=== PATIENT | male | born 1965 | race Two or more races ===

== ENCOUNTER 2018-01-15 14:18 | Inpatient (IN) | payer OTHER ==
[~2018-01-15] VITALS: Ht 167.6 cm; Wt 64.9 kg
[~2018-01-15 14:18] MED LIST: AGGRENOX 25 MG1 EACH ORAL; LEVETIRACETAM500 MG ORAL; OMEPRAZOLE20 M2 ORAL; PANTOPRAZOLE SO40 MG ORAL
--- NOTE | 2018-01-15 14:32 | Emergency Room Report ---
History of Present Illness General Chief Complaint: General Complaint Source: Patient Present Illness HPI Patient is a 52-year-old male brought in by EMS after increased lower extremity pain. 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 The patient states that he had been diagnosed with non-Hodgkin' s lymphoma in the past but had currently been in remission. The patient was followed by neurology for seizure disorder. He had recently been started on new medication which he states started with V but cannot recall the name. The patient denies recent taking medications currently.The patient reports taking Aggrenox previously. The patient reports having burning sensation to his chest associated with nausea and vomiting intermittently for one day. 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 Allergies: Coded Allergies: No Known Allergies (Unverified , 04/29/16) Patient History Past Surgical History: none Reviewed Nursing Documentation: PMH: Agreed; PSxH: Agreed Nursing Documentation-PMH Past Medical History: No History, Except For Hx Hypertension: Yes Hx Cancer: Yes - Hodgkin's Lymphoma Hx Gastrointestinal Problems: No Hx Cerebrovascular Accident: Yes - 6 weeks ago Hx Transient Ischemic Attacks: Yes Hx Seizures: No Hx Headaches: Yes Review of Systems All Other Systems: negative except mentioned in HPI Physical Exam Vital Signs Date Time Temp Pulse Resp B/P (MAP) Pulse Ox O2 Delivery O2 Flow Rate FiO2 01/15/18 14:19 97.8 114 18 73/49 99 97.9 Sp02 EP Interpretation: reviewed, normal General Appearance: normal inspection, well appearing, no apparent distress, alert, GCS 15 Head: atraumatic ENT: normal ENT inspection, hearing grossly normal, normal voice Neck: normal inspection, full range of motion, supple, no bony tend Respiratory: normal inspection, lungs clear, normal breath sounds, no respiratory distress, no retraction, no wheezing Cardiovascular #1: regular rate, rhythm, no edema Gastrointestinal: normal inspection, normal bowel sounds, non tender, soft, no guarding, no hernia Genitourinary: no CVA tenderness Musculoskeletal: normal inspection, back normal, normal range of motion Neurologic: normal inspection, alert, oriented x3, responsive, 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 Differential diagnosis included but was not limited to acute coronary syndrome, pulmonary embolism, pneumonia, aortic dissection, shingles, pneumothorax, aortic dissection, esophageal rupture, pericarditis. Because of complexity of patient's case laboratory testing and imaging studies were ordered.The patient was noted to be hypotensive initially with initial blood pressure in the 60s. Patient was started on IV fluids. He was noted to have some improvement in blood pressure. CTA of the chest read by radiology showed the midlung scarring versus infiltrate with questionable esophageal thickening.The patient will be admitted to Dr. Sim by for panel physician Labs Test 01/15/18 14:26 01/15/18 14:29 01/15/18 16:00 01/15/18 17:23 White Blood Count 8.8 K/UL (4.8-10.8) Red Blood Count 5.06 M/UL (4.70-6.10) Hemoglobin 15.0 G/DL (14.2-18.0) Hematocrit 45.4 % (42.0-52.0) Mean Corpuscular Volume 90 FL (80-99) Mean Corpuscular Hemoglobin 29.7 PG (27.0-31.0) Mean Corpuscular Hemoglobin Concent 33.1 G/DL (32.0-36.0) Red Cell Distribution Width 11.5 % (11.6-14.8) Platelet Count 297 K/UL (150-450) Mean Platelet Volume 6.3 FL (6.5-10.1) Neutrophils (%) (Auto) 76.3 % (45.0-75.0) Lymphocytes (%) (Auto) 13.9 % (20.0-45.0) Monocytes (%) (Auto) 6.0 % (1.0-10.0) Eosinophils (%) (Auto) 2.9 % (0.0-3.0) Basophils (%) (Auto) 1.0 % (0.0-2.0) Prothrombin Time 10.4 SEC (9.30-11.50) Prothromb Time International Ratio 1.0 (0.9-1.1) Activated Partial Thromboplast Time 25 SEC (23-33) Sodium Level 138 MMOL/L (136-145) Potassium Level 3.5 MMOL/L (3.5-5.1) Chloride Level 99 MMOL/L (98-107) Carbon Dioxide Level 24 MMOL/L (21-32) Anion Gap 15 mmol/L (5-15) Blood Urea Nitrogen 19 mg/dL (7-18) Creatinine 1.7 MG/DL (0.55-1.30) Estimat Glomerular Filtration Rate 42.5 mL/min (>60) Glucose Level 100 MG/DL (74-106) Calcium Level 10.6 MG/DL (8.5-10.1) Phosphorus Level 2.2 MG/DL (2.5-4.9) Magnesium Level 1.4 MG/DL (1.8-2.4) Total Bilirubin 0.8 MG/DL (0.2-1.0) Aspartate Amino Transf (AST/SGOT) 27 U/L (15-37) Alanine Aminotransferase (ALT/SGPT) 33 U/L (12-78) Alkaline Phosphatase 79 U/L (46-116) Total Creatine Kinase 189 U/L (26-308) Creatine Kinase MB 3.0 NG/ML (0.0-3.6) Creatine Kinase MB Relative Index 1.5 Troponin I 0.027 ng/mL (0.000-0.056) Pro-B-Type Natriuretic Peptide 1064 pg/mL (0-125) Total Protein 9.1 G/DL (6.4-8.2) Albumin 4.1 G/DL (3.4-5.0) Globulin 5.0 g/dL Albumin/Globulin Ratio 0.8 (1.0-2.7) Lipase 105 U/L (73-393) Arterial Blood pH 7.470 (7.350-7.450) Arterial Blood Partial Pressure CO2 33.6 mmHg (35.0-45.0) Arterial Blood Partial Pressure O2 86.8 mmHg (75.0-100.0) Arterial Blood HCO3 24.3 mmol/L (22.0-26.0) Arterial Blood Oxygen Saturation 96.0 % (92.0-98.0) Arterial Blood Base Excess 1.4 Mitchel Test Positive Urine Color Yellow Urine Appearance Clear Urine pH 7 (4.5-8.0) Urine Specific [place] 1.015 (1.005-1.035) Urine Protein 2+ (NEGATIVE) Urine Glucose (UA) Negative (NEGATIVE) Urine Ketones Negative (NEGATIVE) Urine Occult Blood 1+ (NEGATIVE) Urine Nitrite Negative (NEGATIVE) Urine Bilirubin Negative (NEGATIVE) Urine Urobilinogen Normal MG/DL (0.0-1.0) Urine Leukocyte Esterase Negative (NEGATIVE) Urine RBC 2-4 /HPF (0 - 0) Urine WBC 0-2 /HPF (0 - 0) Urine Squamous Epithelial Cells Occasional /LPF Urine Bacteria Few /HPF (NONE) Urine Hyaline Casts 2-4 /LPF (NONE) Lactic Acid Level 1.80 mmol/L (0.66-2.22) EKG Diagnostic Results Rate: tachycardiac Rhythm: NSR ST Segments: no acute changes Last Vital Signs Date Time Temp Pulse Resp B/P (MAP) Pulse Ox O2 Delivery O2 Flow Rate FiO2 01/15/18 14:19 97.8 114 18 73/49 99 97.9 Status: improved Disposition: ADMITTED INPATIENT Condition: Serious Lc Mao MD January 15, 2018 14:32
[2018-01-15] MEDS ORDERED: Isovue-370 150ml vial INJ PRN (14:45)
[2018-01-15 14:50] VITALS: BP 92/58
[2018-01-15 14:52] LABS: EOSINOPHILS % (AUTO) 2.9 % (0.0-3.0); HEMATOCRIT 45.4 % (42.0-52.0); LYMPHOCYTES % (AUTO) 13.9 % (20.0-45.0); MEAN CORPUSCULAR VOLUME 90 FL (80-99); NEUTROPHILS % (AUTO) 76.3 % (45.0-75.0); PLATELET COUNT 297 K/UL (150-450); RED BLOOD COUNT 5.06 M/UL (4.70-6.10); RED CELL DISTRIBUTION WIDTH 11.5 % (11.6-14.8); WHITE BLOOD COUNT 8.8 K/UL (4.8-10.8)
[2018-01-15 15:04] LABS: ANION GAP 15 mmol/L (5-15); BLOOD UREA NITROGEN 19 mg/dL (7-18); CALCIUM 10.6 MG/DL (8.5-10.1); CARBON DIOXIDE 24 MMOL/L (21-32); CHLORIDE 99 MMOL/L (98-107); CREATININE 1.7 MG/DL (0.55-1.30); POTASSIUM 3.5 MMOL/L (3.5-5.1); SODIUM 138 MMOL/L (136-145)
[2018-01-15 15:18] LABS: ALANINE AMINOTRANSFERASE 33 U/L (12-78); ALBUMIN 4.1 G/DL (3.4-5.0); ALBUMIN/GLOBULIN RATIO 0.8 (1.0-2.7); ALKALINE PHOSPHATASE 79 U/L (46-116); ASPARTATE AMINO TRANSFERASE 27 U/L (15-37); BILIRUBIN,TOTAL 0.8 MG/DL (0.2-1.0); CREATINE KINASE 189 U/L (26-308); PHOSPHORUS 2.2 MG/DL (2.5-4.9)
[2018-01-15 16:32] LABS: APPEARANCE,URINE CLEAR; BILIRUBIN, URINE NEGATIVE (NEGATIVE); GLUCOSE, URINE (UA) NEGATIVE (NEGATIVE); KETONES,URINE NEGATIVE (NEGATIVE); LEUKOCYTE ESTERASE ,URINE NEGATIVE (NEGATIVE); NITRITE,URINE NEGATIVE (NEGATIVE); PH,URINE 7 (4.5-8.0); PROTEIN,URINE 2+ (NEGATIVE); UROBILINOGEN,URINE NORMAL MG/DL (0.0-1.0)
[2018-01-15 16:35] LABS: COLOR,URINE YELLOW
--- NOTE | 2018-01-15 17:05 | Diagnostic Imaging Report ---
Indication: Shortness of breath Technique: One view of the chest Comparison: 04/29/2016 Findings: The lungs and pleural spaces are clear. The heart size is normal. Surgical hardware is seen reducing old healed left clavicular fracture. Calcified granulomatous nodes are seen in the aortopulmonary window Impression: No acute process
--- NOTE | 2018-01-15 17:38 | Diagnostic Imaging Report ---
EXAM: CT Angiography Chest With Intravenous Contrast CLINICAL HISTORY: CP TECHNIQUE: Axial computed tomographic angiography images of the chest with intravenous contrast using pulmonary embolism protocol. CTDI is 18 mGy and DLP is 758 mGy-cm. One or more of the following dose reduction techniques were used: automated exposure control, adjustment of the mA and/or kV according to patient size, use of iterative reconstruction technique. 3D and MIP reconstructed images were created and reviewed. COMPARISON: No relevant prior studies available. FINDINGS: Pulmonary arteries: No PE or aortic dissection. Aorta: Atherosclerosis. No aortic dissection. Lungs: Possible mild infiltrates in the medial right middle and lower lobes, versus chronic changes or scarring. Pleural space: Unremarkable. No significant effusion. No pneumothorax. Heart: Unremarkable. No cardiomegaly. No significant pericardial effusion. Mediastinum: Mildly thickened distal esophagus which may be underdistention versus esophagitis. Bones/joints: Left clavicle surgical fixation. T3 mild chronic compression. Soft tissues: Unremarkable. Lymph nodes: Unremarkable. No enlarged lymph nodes. IMPRESSION: 1. No PE or aortic dissection. 2. Possible mild infiltrates in the medial right middle and lower lobes, versus chronic changes or scarring. 3. Mildly thickened distal esophagus which may be underdistention versus esophagitis.
[2018-01-15] MEDS ORDERED: LEVOTHYROXINE75 MCG ORAL ×2 (18:46→22:41)
[2018-01-15] MEDS ORDERED: METOPROLOL TART25 MG ORAL ×2 (18:46→22:41)
[2018-01-15 19:02] VITALS: BP 139/68
[2018-01-15 20:00] VITALS: BP 132/88
[2018-01-15] MEDS: Morphine Sulfate 4mg/ml Inj IVP PRN (21:41)
[2018-01-15] MEDS: Metoprolol 25mg tab ORAL SCH (22:00)
[2018-01-15] MEDS ORDERED: LYRICA50 MG ORAL (22:41)
[2018-01-15] MEDS ORDERED: BACLOFEN10 MG ORAL (22:41)
[2018-01-15] MEDS ORDERED: ZOFRAN4 M3 ORAL (22:41)
[2018-01-15] MEDS ORDERED: AGGRENOX 25 MG1 EACH ORAL (22:41)
[2018-01-15] MEDS ORDERED: AMOXICILLIN500 MG ORAL (22:41)
[2018-01-15] MEDS ORDERED: TYLENOL WITH C1 EACH ORAL (22:41)
[2018-01-15] MEDS ORDERED: GABAPENTIN300 MG ORAL (22:41)
[2018-01-15] MEDS ORDERED: LEXAPRO20 MG ORAL (22:41)
[2018-01-15] MEDS ORDERED: PRAVACHOL40 MG ORAL (22:41)
[2018-01-15] MEDS ORDERED: TAMSULOSIN HCL0.4 MG ORAL (22:41)
[2018-01-15] MEDS ORDERED: PANTOPRAZOLE SO40 MG ORAL (22:41)
[2018-01-15] MEDS ORDERED: FOLIC ACID1 MG ORAL (22:41)
[2018-01-15] MEDS ORDERED: LEVETIRACETAM1000 MG ORAL (22:41)
--- NOTE | 2018-01-15 23:04 | History and Physical ---
History of Present Illness General Date patient seen: January 15, 2018 Time patient seen: 18:00 Reason for Hospitalization: General Complaint Present Illness HPI 52 y/o male with a PMH of seizure disorder, Hodgkin's lymphoma in remission, hypothyroidism, HTN, GERD, and chemo-related neuropathy presented for bilateral leg pain and hypotension. Patient was noted to have a SBP of 60s but denies chest pain, sob, palpitations. Patient also reported chest pain but EKG showed sinus tachycardia with no ST elevations. Initial troponin was negative and CT chest was done, which was largely unremarkable. Patient was further admitted for hypotension. Denies f/c, n/v, abdominal pain. Allergies: Coded Allergies: No Known Allergies (Unverified , 04/29/16) Medication History Scheduled Amoxicillin* (Amoxil*), 500 MG ORAL EVERY 8 HOURS, (Reported) Aspirin/Dipyridamole* (Aggrenox 25 Mg-200 Mg Capsule*), 1 CAP ORAL TWICE A DAY, (Reported) Aspirin/Dipyridamole* (Aggrenox 25 Mg-200 Mg Capsule*), 1 CAP ORAL TWICE A DAY, (Reported) Baclofen* (Baclofen*), 10 MG ORAL THREE TIMES A DAY, (Reported) Escitalopram Oxalate* (Lexapro*), 20 MG ORAL DAILY, (Reported) Folic Acid* (Folic Acid*), 1 MG ORAL DAILY, (Reported) Gabapentin* (Gabapentin*), 300 MG ORAL THREE TIMES A DAY, (Reported) Levetiracetam (Levetiracetam), 1,000 MG ORAL TWICE A DAY, (Reported) Levetiracetam* (Levetiracetam*), 1,000 MG ORAL DAILY, (Reported) Levothyroxine Sodium* (Levothyroxine Sodium*), Unknown Dose ORAL DAILY, ( Reported) Levothyroxine Sodium* (Levothyroxine Sodium*), 75 MCG ORAL DAILY, (Reported) Metoprolol Tartrate* (Metoprolol Tartrate*), Unknown Dose ORAL EVERY 12 HOURS, ( Reported) Metoprolol Tartrate* (Metoprolol Tartrate*), 25 MG ORAL EVERY 12 HOURS, ( Reported) Omeprazole (Omeprazole), 20 MG ORAL DAILY, (Reported) Pantoprazole* (Pantoprazole*), 40 MG ORAL DAILY, (Reported) Pantoprazole* (Pantoprazole*), 40 MG ORAL DAILY, (Reported) Pravastatin Sodium (Pravachol), 40 MG ORAL BEDTIME, (Reported) Pregabalin (Lyrica), 50 MG ORAL THREE TIMES A DAY, (Reported) Tamsulosin Hcl (Tamsulosin Hcl*), 0.4 MG ORAL BEDTIME, (Reported) Scheduled PRN Acetaminophen With Codeine 300MG/30MG (T#3)* (Tylenol With Codeine #3 Tablet*), 1 TAB ORAL Q4H PRN for For Pain, (Reported) Ondansetron* (Zofran*), 4 MG ORAL Q6H PRN for Nausea & Vomiting, (Reported) Patient History History Provided By: Patient Healthcare decision maker N Resuscitation status Advanced Directive on File Review of Systems All Other Systems: negative except mentioned in HPI Physical Exam General Appearance: no apparent distress, alert HEENT: normocephalic, atraumatic Neck: non-tender, normal alignment Respiratory/Chest: chest wall non-tender, lungs clear, normal breath sounds Cardiovascular/Chest: normal peripheral pulses, normal rate Abdomen: normal bowel sounds, non tender, soft Extremities: normal range of motion, non-tender Skin Exam: normal pigmentation, warm/dry 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, no motor/sensory deficits, alert, oriented x 3 Last 24 Hour Vital Signs Date Time Temp Pulse Resp B/P (MAP) Pulse Ox O2 Delivery O2 Flow Rate FiO2 01/15/18 22:11 97.8 01/15/18 21:41 97.8 01/15/18 20:05 97.8 98 17 139/68 98 Room Air 97.9 01/15/18 20:00 98.5 95 20 132/88 100 Room Air 98.5 01/15/18 20:00 108 01/15/18 19:02 98 17 139/68 98 Room Air 01/15/18 14:50 113 21 92/58 96 Room Air 01/15/18 14:19 97.8 114 18 73/49 99 97.9 Laboratory Tests Test 01/15/18 14:26 01/15/18 14:29 01/15/18 16:00 01/15/18 17:23 White Blood Count 8.8 K/UL (4.8-10.8) Red Blood Count 5.06 M/UL (4.70-6.10) Hemoglobin 15.0 G/DL (14.2-18.0) Hematocrit 45.4 % (42.0-52.0) Mean Corpuscular Volume 90 FL (80-99) Mean Corpuscular Hemoglobin 29.7 PG (27.0-31.0) Mean Corpuscular Hemoglobin Concent 33.1 G/DL (32.0-36.0) Red Cell Distribution Width 11.5 % (11.6-14.8) L Platelet Count 297 K/UL (150-450) Mean Platelet Volume 6.3 FL (6.5-10.1) L Neutrophils (%) (Auto) 76.3 % (45.0-75.0) H Lymphocytes (%) (Auto) 13.9 % (20.0-45.0) L Monocytes (%) (Auto) 6.0 % (1.0-10.0) Eosinophils (%) (Auto) 2.9 % (0.0-3.0) Basophils (%) (Auto) 1.0 % (0.0-2.0) Prothrombin Time 10.4 SEC (9.30-11.50) Prothromb Time International Ratio 1.0 (0.9-1.1) Activated Partial Thromboplast Time 25 SEC (23-33) Sodium Level 138 MMOL/L (136-145) Potassium Level 3.5 MMOL/L (3.5-5.1) Chloride Level 99 MMOL/L (98-107) Carbon Dioxide Level 24 MMOL/L (21-32) Anion Gap 15 mmol/L (5-15) Blood Urea Nitrogen 19 mg/dL (7-18) H Creatinine 1.7 MG/DL (0.55-1.30) H Estimat Glomerular Filtration Rate 42.5 mL/min (>60) Glucose Level 100 MG/DL (74-106) Calcium Level 10.6 MG/DL (8.5-10.1) H Phosphorus Level 2.2 MG/DL (2.5-4.9) L Magnesium Level 1.4 MG/DL (1.8-2.4) L Total Bilirubin 0.8 MG/DL (0.2-1.0) Aspartate Amino Transf (AST/SGOT) 27 U/L (15-37) Alanine Aminotransferase (ALT/SGPT) 33 U/L (12-78) Alkaline Phosphatase 79 U/L (46-116) Total Creatine Kinase 189 U/L (26-308) Creatine Kinase MB 3.0 NG/ML (0.0-3.6) Creatine Kinase MB Relative Index 1.5 Troponin I 0.027 ng/mL (0.000-0.056) Pro-B-Type Natriuretic Peptide 1064 pg/mL (0-125) H Total Protein 9.1 G/DL (6.4-8.2) H Albumin 4.1 G/DL (3.4-5.0) Globulin 5.0 g/dL Albumin/Globulin Ratio 0.8 (1.0-2.7) L Lipase 105 U/L (73-393) Arterial Blood pH 7.470 (7.350-7.450) Arterial Blood Partial Pressure CO2 33.6 mmHg (35.0-45.0) L Arterial Blood Partial Pressure O2 86.8 mmHg (75.0-100.0) Arterial Blood HCO3 24.3 mmol/L (22.0-26.0) Arterial Blood Oxygen Saturation 96.0 % (92.0-98.0) Arterial Blood Base Excess 1.4 Mitchel Test Positive Urine Color Yellow Urine Appearance Clear Urine pH 7 (4.5-8.0) Urine Specific [place] 1.015 (1.005-1.035) Urine Protein 2+ (NEGATIVE) H Urine Glucose (UA) Negative (NEGATIVE) Urine Ketones Negative (NEGATIVE) Urine Occult Blood 1+ (NEGATIVE) H Urine Nitrite Negative (NEGATIVE) Urine Bilirubin Negative (NEGATIVE) Urine Urobilinogen Normal MG/DL (0.0-1.0) Urine Leukocyte Esterase Negative (NEGATIVE) Urine RBC 2-4 /HPF (0 - 0) H Urine WBC 0-2 /HPF (0 - 0) Urine Squamous Epithelial Cells Occasional /LPF Urine Bacteria Few /HPF (NONE) Urine Hyaline Casts 2-4 /LPF (NONE) H Lactic Acid Level 2.90 mmol/L (0.66-2.22) H 1.80 mmol/L (0.66-2.22) Height (Feet): 5 Height (Inches): 6.00 Weight (Pounds): 150 Medications Current Medications Medications (Trade) Dose Ordered Sig/Evelio Route PRN Reason Start Time Stop Time Status Last Admin Dose Admin Acetaminophen (Tylenol) 650 mg Q6H PRN ORAL Mild Pain/Temp > 100.5 01/15/18 21:30 02/14/18 21:29 Acetaminophen/ Hydrocodone Bitart ([place] 5/325) 1 tab Q4H PRN ORAL Moderate Pain (Pain Scale 4-6) 01/15/18 21:30 01/22/18 21:29 Dipyridamole/ Aspirin (Aggrenox) 1 cap TWICE A DAY ORAL 01/16/18 09:00 02/15/18 08:59 Iopamidol (Isovue-370 150ml) 150 ml NOW PRN INJ Radiology Procedure 01/15/18 14:45 01/17/18 14:36 Levetiracetam (Keppra) 1,000 mg DAILY ORAL 01/16/18 09:00 02/15/18 08:59 Levothyroxine Sodium (Synthroid) 75 mcg ACBREAKFAST ORAL 01/16/18 06:30 02/15/18 06:29 Metoprolol Tartrate (Lopressor) 25 mg EVERY 12 HOURS ORAL 01/15/18 22:00 02/14/18 21:59 Morphine Sulfate (Morphine Sulfate) 4 mg Q4H PRN IVP Severe Pain (Pain Scale 7-10) 01/15/18 21:30 01/22/18 21:29 01/15/18 21:41 Pantoprazole (Protonix) 40 mg DAILY ORAL 01/16/18 09:00 02/15/18 08:59 Sodium Chloride 1,000 ml @ 75 mls/hr [id number] IV 01/15/18 21:30 02/14/18 21:29 01/15/18 21:40 Assessment/Plan Problem List: (1) Seizure ICD Codes: R56.9 - Unspecified convulsions SNOMED: 30145290 (2) Hypothyroidism ICD Codes: E03.9 - Hypothyroidism, unspecified SNOMED: 17628485 (3) GERD (gastroesophageal reflux disease) ICD Codes: K21.9 - Gastro-esophageal reflux disease without esophagitis SNOMED: 016567206 (4) HTN (hypertension) ICD Codes: I10 - Essential (primary) hypertension SNOMED: 69720613 (5) H/O Hodgkin's lymphoma ICD Codes: Z85.71 - Personal history of Hodgkin lymphoma SNOMED: 861364144 (6) Renal failure ICD Codes: N19 - Unspecified kidney failure SNOMED: 87496428 (7) Syncopal episodes ICD Codes: R55 - Syncope and collapse SNOMED: 478277670 (8) Generalized weakness ICD Codes: R53.1 - Weakness SNOMED: 83409848 (9) Hypotension ICD Codes: I95.9 - Hypotension, unspecified SNOMED: 86429565 (10) Scarring of lung ICD Codes: J98.4 - Other disorders of lung SNOMED: 231558340 Status: stable, progressing Assessment/Plan - Admit to inpatient - IVF - UA and CXR negative - CT chest reviewed, largely unremarkable - check TTE, carotid, trops, BNP, TSH - tele monitoring - continue home meds. hold metoprolol in the setting of hypotension at this time - pain control and supportive care DVT Prophylaxis: SCD, HSQ Code Status: Full Hospital Classification Declaration: Based on this initial evaluation, and depending on the patient's clinical course, I anticipate that this patient will require hospitalization for 2-3 days for hypotension and close respiratory/ hemodynamic monitoring. Disposition: Once the patient is stable to leave the hospital, I anticipate the patient will likely be discharged to the following environment: home with HH vs SNF I spent 71 minutes on this patient's case, and 41 minutes were dedicated to counseling and/or care coordination. Discussed with patient/family, nursing staff, SW/CM, regarding clinical status, treatment course, and disposition planning. Time of note may not reflect time of encounter. Tequila Patiño NP January 15, 2018 23:04
[2018-01-15] MEDS: Lyrica 50mg cap ORAL SCH (23:49)
[2018-01-15] MEDS: Tamsulosin 0.4mg cap ORAL SCH (23:50)
[2018-01-16] VITALS: BP 119/75
[2018-01-16] MEDS: Morphine Sulfate 4mg/ml Inj IVP PRN ×5 (02:13→20:16)
[2018-01-16 04:00] VITALS: BP 116/56
[2018-01-16 05:43] LABS: BASOPHILS % (AUTO) 0.8 % (0.0-2.0); EOSINOPHILS % (AUTO) 2.6 % (0.0-3.0); HEMATOCRIT 33.6 % (42.0-52.0); HEMOGLOBIN 11.4 G/DL (14.2-18.0); LYMPHOCYTES % (AUTO) 19.9 % (20.0-45.0); MEAN CORPUSCULAR VOLUME 89 FL (80-99); MONOCYTES % (AUTO) 5.9 % (1.0-10.0); NEUTROPHILS % (AUTO) 70.8 % (45.0-75.0); PLATELET COUNT 221 K/UL (150-450); RED BLOOD COUNT 3.76 M/UL (4.70-6.10); RED CELL DISTRIBUTION WIDTH 11.6 % (11.6-14.8); WHITE BLOOD COUNT 7.4 K/UL (4.8-10.8)
[2018-01-16 06:34] LABS: ALANINE AMINOTRANSFERASE 24 U/L (12-78); ALBUMIN 3.1 G/DL (3.4-5.0); ALBUMIN/GLOBULIN RATIO 0.8 (1.0-2.7); ALKALINE PHOSPHATASE 57 U/L (46-116); ANION GAP 9 mmol/L (5-15); ASPARTATE AMINO TRANSFERASE 17 U/L (15-37); BILIRUBIN,TOTAL 0.4 MG/DL (0.2-1.0); BLOOD UREA NITROGEN 25 mg/dL (7-18); CALCIUM 8.4 MG/DL (8.5-10.1); CARBON DIOXIDE 28 MMOL/L (21-32); CHLORIDE 100 MMOL/L (98-107); CREATININE 1.6 MG/DL (0.55-1.30); POTASSIUM 3.3 MMOL/L (3.5-5.1); SODIUM 137 MMOL/L (136-145)
[2018-01-16 08:00] VITALS: BP 133/75
[2018-01-16] MEDS: Aggrenox Cap ORAL SCH ×2 (09:56→18:07)
[2018-01-16] MEDS: Metoprolol 25mg tab ORAL SCH ×2 (09:56→21:26)
[2018-01-16] MEDS: Lyrica 50mg cap ORAL SCH ×3 (09:56→18:07)
[2018-01-16 12:00] VITALS: BP 138/60
--- NOTE | 2018-01-16 13:52 | Internal Med Progress Note ---
Subjective Physician Name Linda Brewster Attending Physician James Reyes MD Current Medications Medications (Trade) Dose Ordered Sig/Evelio Route PRN Reason Start Time Stop Time Status Last Admin Dose Admin Acetaminophen (Tylenol) 650 mg Q6H PRN ORAL Mild Pain/Temp > 100.5 01/15/18 21:30 02/14/18 21:29 Acetaminophen/ Hydrocodone Bitart ([place] 5/325) 1 tab Q4H PRN ORAL Moderate Pain (Pain Scale 4-6) 01/15/18 21:30 01/22/18 21:29 Baclofen (Lioresal) 10 mg THREE TIMES A DAY ORAL 01/16/18 23:58 02/15/18 23:57 Dipyridamole/ Aspirin (Aggrenox) 1 cap TWICE A DAY ORAL 01/16/18 09:00 02/15/18 08:59 01/16/18 09:56 Folic Acid (Folate) 1 mg DAILY ORAL 01/16/18 09:00 02/15/18 08:59 01/16/18 09:56 Gabapentin (Neurontin) 300 mg THREE TIMES A DAY ORAL 01/16/18 23:59 02/15/18 23:58 Levetiracetam (Keppra) 1,000 mg DAILY ORAL 01/16/18 09:00 02/15/18 08:59 01/16/18 09:56 Levothyroxine Sodium (Synthroid) 75 mcg ACBREAKFAST ORAL 01/16/18 06:30 02/15/18 06:29 01/16/18 05:33 Metoprolol Tartrate (Lopressor) 25 mg EVERY 12 HOURS ORAL 01/15/18 22:00 02/14/18 21:59 01/16/18 09:56 Morphine Sulfate (Morphine Sulfate) 4 mg Q4H PRN IVP Severe Pain (Pain Scale 7-10) 01/15/18 21:30 01/22/18 21:29 01/16/18 10:40 Ondansetron HCl (Zofran) 4 mg Q6H PRN ORAL Nausea & Vomiting 01/15/18 23:45 02/14/18 23:44 Pantoprazole (Protonix) 40 mg DAILY ORAL 01/16/18 09:00 02/15/18 08:59 01/16/18 09:56 Pravastatin Sodium (Pravachol) 40 mg BEDTIME ORAL 01/15/18 23:49 02/14/18 23:48 Pregabalin (Lyrica) 50 mg THREE TIMES A DAY ORAL 01/15/18 23:49 02/14/18 23:48 01/16/18 13:08 Sodium Chloride 1,000 ml @ 75 mls/hr [id number] IV 01/15/18 21:30 02/14/18 21:29 01/15/18 21:40 Tamsulosin HCl (Flomax) 0.4 mg BEDTIME ORAL 01/15/18 23:50 02/14/18 23:49 Allergies: Coded Allergies: No Known Allergies (Unverified , 04/29/16) Objective Last Vital Signs Date Time Temp Pulse Resp B/P (MAP) Pulse Ox O2 Delivery O2 Flow Rate FiO2 01/16/18 12:00 97.5 82 21 138/60 99 Room Air 97.5 Laboratory Tests Test 01/15/18 14:26 01/15/18 14:29 01/15/18 16:00 01/15/18 17:23 White Blood Count 8.8 K/UL (4.8-10.8) Red Blood Count 5.06 M/UL (4.70-6.10) Hemoglobin 15.0 G/DL (14.2-18.0) Hematocrit 45.4 % (42.0-52.0) Mean Corpuscular Volume 90 FL (80-99) Mean Corpuscular Hemoglobin 29.7 PG (27.0-31.0) Mean Corpuscular Hemoglobin Concent 33.1 G/DL (32.0-36.0) Red Cell Distribution Width 11.5 % (11.6-14.8) L Platelet Count 297 K/UL (150-450) Mean Platelet Volume 6.3 FL (6.5-10.1) L Neutrophils (%) (Auto) 76.3 % (45.0-75.0) H Lymphocytes (%) (Auto) 13.9 % (20.0-45.0) L Monocytes (%) (Auto) 6.0 % (1.0-10.0) Eosinophils (%) (Auto) 2.9 % (0.0-3.0) Basophils (%) (Auto) 1.0 % (0.0-2.0) Prothrombin Time 10.4 SEC (9.30-11.50) Prothromb Time International Ratio 1.0 (0.9-1.1) Activated Partial Thromboplast Time 25 SEC (23-33) Sodium Level 138 MMOL/L (136-145) Potassium Level 3.5 MMOL/L (3.5-5.1) Chloride Level 99 MMOL/L (98-107) Carbon Dioxide Level 24 MMOL/L (21-32) Anion Gap 15 mmol/L (5-15) Blood Urea Nitrogen 19 mg/dL (7-18) H Creatinine 1.7 MG/DL (0.55-1.30) H Estimat Glomerular Filtration Rate 42.5 mL/min (>60) Glucose Level 100 MG/DL (74-106) Calcium Level 10.6 MG/DL (8.5-10.1) H Phosphorus Level 2.2 MG/DL (2.5-4.9) L Magnesium Level 1.4 MG/DL (1.8-2.4) L Total Bilirubin 0.8 MG/DL (0.2-1.0) Aspartate Amino Transf (AST/SGOT) 27 U/L (15-37) Alanine Aminotransferase (ALT/SGPT) 33 U/L (12-78) Alkaline Phosphatase 79 U/L (46-116) Total Creatine Kinase 189 U/L (26-308) Creatine Kinase MB 3.0 NG/ML (0.0-3.6) Creatine Kinase MB Relative Index 1.5 Troponin I 0.027 ng/mL (0.000-0.056) Pro-B-Type Natriuretic Peptide 1064 pg/mL (0-125) H Total Protein 9.1 G/DL (6.4-8.2) H Albumin 4.1 G/DL (3.4-5.0) Globulin 5.0 g/dL Albumin/Globulin Ratio 0.8 (1.0-2.7) L Lipase 105 U/L (73-393) Arterial Blood pH 7.470 (7.350-7.450) Arterial Blood Partial Pressure CO2 33.6 mmHg (35.0-45.0) L Arterial Blood Partial Pressure O2 86.8 mmHg (75.0-100.0) Arterial Blood HCO3 24.3 mmol/L (22.0-26.0) Arterial Blood Oxygen Saturation 96.0 % (92.0-98.0) Arterial Blood Base Excess 1.4 Mitchel Test Positive Urine Color Yellow Urine Appearance Clear Urine pH 7 (4.5-8.0) Urine Specific [place] 1.015 (1.005-1.035) Urine Protein 2+ (NEGATIVE) H Urine Glucose (UA) Negative (NEGATIVE) Urine Ketones Negative (NEGATIVE) Urine Occult Blood 1+ (NEGATIVE) H Urine Nitrite Negative (NEGATIVE) Urine Bilirubin Negative (NEGATIVE) Urine Urobilinogen Normal MG/DL (0.0-1.0) Urine Leukocyte Esterase Negative (NEGATIVE) Urine RBC 2-4 /HPF (0 - 0) H Urine WBC 0-2 /HPF (0 - 0) Urine Squamous Epithelial Cells Occasional /LPF Urine Bacteria Few /HPF (NONE) Urine Hyaline Casts 2-4 /LPF (NONE) H Lactic Acid Level 2.90 mmol/L (0.66-2.22) H 1.80 mmol/L (0.66-2.22) Test 01/16/18 04:00 White Blood Count 7.4 K/UL (4.8-10.8) Red Blood Count 3.76 M/UL (4.70-6.10) L Hemoglobin 11.4 G/DL (14.2-18.0) L Hematocrit 33.6 % (42.0-52.0) L Mean Corpuscular Volume 89 FL (80-99) Mean Corpuscular Hemoglobin 30.2 PG (27.0-31.0) Mean Corpuscular Hemoglobin Concent 33.8 G/DL (32.0-36.0) Red Cell Distribution Width 11.6 % (11.6-14.8) Platelet Count 221 K/UL (150-450) Mean Platelet Volume 6.2 FL (6.5-10.1) L Neutrophils (%) (Auto) 70.8 % (45.0-75.0) Lymphocytes (%) (Auto) 19.9 % (20.0-45.0) L Monocytes (%) (Auto) 5.9 % (1.0-10.0) Eosinophils (%) (Auto) 2.6 % (0.0-3.0) Basophils (%) (Auto) 0.8 % (0.0-2.0) Sodium Level 137 MMOL/L (136-145) Potassium Level 3.3 MMOL/L (3.5-5.1) L Chloride Level 100 MMOL/L (98-107) Carbon Dioxide Level 28 MMOL/L (21-32) Anion Gap 9 mmol/L (5-15) Blood Urea Nitrogen 25 mg/dL (7-18) H Creatinine 1.6 MG/DL (0.55-1.30) H Estimat Glomerular Filtration Rate 45.6 mL/min (>60) Glucose Level 128 MG/DL (74-106) H Calcium Level 8.4 MG/DL (8.5-10.1) #L Total Bilirubin 0.4 MG/DL (0.2-1.0) Aspartate Amino Transf (AST/SGOT) 17 U/L (15-37) Alanine Aminotransferase (ALT/SGPT) 24 U/L (12-78) Alkaline Phosphatase 57 U/L (46-116) Pro-B-Type Natriuretic Peptide 298 pg/mL (0-125) H Total Protein 6.8 G/DL (6.4-8.2) Albumin 3.1 G/DL (3.4-5.0) L Globulin 3.7 g/dL Albumin/Globulin Ratio 0.8 (1.0-2.7) L Thyroid Stimulating Hormone (TSH) 8.596 uiU/mL (0.358-3.740) Intake and Output 01/15/18 01/16/18 19:00 07:00 Intake Total 1000 ml 700 ml Balance 1000 ml 700 ml Intake Oral 0 ml IV Total 1000 ml 700 ml # Voids 2 # Bowel Movements 4 Assessment/Plan Assessment/Plan Patient History History Provided By: Patient Healthcare decision maker N Resuscitation status Advanced Directive on File no acute events overnight denies chest pain or sob ROS Review of Systems All Other Systems: negative except mentioned in HPI Physical Exam Physical Exam General Appearance: no apparent distress, alert HEENT: normocephalic, atraumatic Neck: non-tender, normal alignment Respiratory/Chest: chest wall non-tender, lungs clear, normal breath sounds Cardiovascular/Chest: normal peripheral pulses, normal rate Abdomen: normal bowel sounds, non tender, soft Extremities: normal range of motion, non-tender Skin Exam: normal pigmentation, warm/dry 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, no motor/sensory deficits, alert, oriented x 3 Last 24 Hour Vital Signs Date Time Temp Pulse Resp B/P (MAP) Pulse Ox O2 Delivery O2 Flow Rate FiO2 01/15/18 22:11 97.8 01/15/18 21:41 97.8 01/15/18 20:05 97.8 98 17 139/68 98 Room Air 97.9 01/15/18 20:00 98.5 95 20 132/88 100 Room Air 98.5 01/15/18 20:00 108 01/15/18 19:02 98 17 139/68 98 Room Air 01/15/18 14:50 113 21 92/58 96 Room Air 01/15/18 14:19 97.8 114 18 73/49 99 97.9 Laboratory Tests Test 01/15/18 14:26 01/15/18 14:29 01/15/18 16:00 01/15/18 17:23 White Blood Count 8.8 K/UL (4.8-10.8) Red Blood Count 5.06 M/UL (4.70-6.10) Hemoglobin 15.0 G/DL (14.2-18.0) Hematocrit 45.4 % (42.0-52.0) Mean Corpuscular Volume 90 FL (80-99) Mean Corpuscular Hemoglobin 29.7 PG (27.0-31.0) Mean Corpuscular Hemoglobin Concent 33.1 G/DL (32.0-36.0) Red Cell Distribution Width 11.5 % (11.6-14.8) L Platelet Count 297 K/UL (150-450) Mean Platelet Volume 6.3 FL (6.5-10.1) L Neutrophils (%) (Auto) 76.3 % (45.0-75.0) H Lymphocytes (%) (Auto) 13.9 % (20.0-45.0) L Monocytes (%) (Auto) 6.0 % (1.0-10.0) Eosinophils (%) (Auto) 2.9 % (0.0-3.0) Basophils (%) (Auto) 1.0 % (0.0-2.0) Prothrombin Time 10.4 SEC (9.30-11.50) Prothromb Time International Ratio 1.0 (0.9-1.1) Activated Partial Thromboplast Time 25 SEC (23-33) Sodium Level 138 MMOL/L (136-145) Potassium Level 3.5 MMOL/L (3.5-5.1) Chloride Level 99 MMOL/L (98-107) Carbon Dioxide Level 24 MMOL/L (21-32) Anion Gap 15 mmol/L (5-15) Blood Urea Nitrogen 19 mg/dL (7-18) H Creatinine 1.7 MG/DL (0.55-1.30) H Estimat Glomerular Filtration Rate 42.5 mL/min (>60) Glucose Level 100 MG/DL (74-106) Calcium Level 10.6 MG/DL (8.5-10.1) H Phosphorus Level 2.2 MG/DL (2.5-4.9) L Magnesium Level 1.4 MG/DL (1.8-2.4) L Total Bilirubin 0.8 MG/DL (0.2-1.0) Aspartate Amino Transf (AST/SGOT) 27 U/L (15-37) Alanine Aminotransferase (ALT/SGPT) 33 U/L (12-78) Alkaline Phosphatase 79 U/L (46-116) Total Creatine Kinase 189 U/L (26-308) Creatine Kinase MB 3.0 NG/ML (0.0-3.6) Creatine Kinase MB Relative Index 1.5 Troponin I 0.027 ng/mL (0.000-0.056) Pro-B-Type Natriuretic Peptide 1064 pg/mL (0-125) H Total Protein 9.1 G/DL (6.4-8.2) H Albumin 4.1 G/DL (3.4-5.0) Globulin 5.0 g/dL Albumin/Globulin Ratio 0.8 (1.0-2.7) L Lipase 105 U/L (73-393) Arterial Blood pH 7.470 (7.350-7.450) Arterial Blood Partial Pressure CO2 33.6 mmHg (35.0-45.0) L Arterial Blood Partial Pressure O2 86.8 mmHg (75.0-100.0) Arterial Blood HCO3 24.3 mmol/L (22.0-26.0) Arterial Blood Oxygen Saturation 96.0 % (92.0-98.0) Arterial Blood Base Excess 1.4 Mitchel Test Positive Urine Color Yellow Urine Appearance Clear Urine pH 7 (4.5-8.0) Urine Specific [place] 1.015 (1.005-1.035) Urine Protein 2+ (NEGATIVE) H Urine Glucose (UA) Negative (NEGATIVE) Urine Ketones Negative (NEGATIVE) Urine Occult Blood 1+ (NEGATIVE) H Urine Nitrite Negative (NEGATIVE) Urine Bilirubin Negative (NEGATIVE) Urine Urobilinogen Normal MG/DL (0.0-1.0) Urine Leukocyte Esterase Negative (NEGATIVE) Urine RBC 2-4 /HPF (0 - 0) H Urine WBC 0-2 /HPF (0 - 0) Urine Squamous Epithelial Cells Occasional /LPF Urine Bacteria Few /HPF (NONE) Urine Hyaline Casts 2-4 /LPF (NONE) H Lactic Acid Level 2.90 mmol/L (0.66-2.22) H 1.80 mmol/L (0.66-2.22) Height (Feet): 5 Height (Inches): 6.00 Weight (Pounds): 150 Medications Current Medications Medications (Trade) Dose Ordered Sig/Evelio Route PRN Reason Start Time Stop Time Status Last Admin Dose Admin Acetaminophen (Tylenol) 650 mg Q6H PRN ORAL Mild Pain/Temp > 100.5 01/15/18 21:30 02/14/18 21:29 Acetaminophen/ Hydrocodone Bitart ([place] 5/325) 1 tab Q4H PRN ORAL Moderate Pain (Pain Scale 4-6) 01/15/18 21:30 01/22/18 21:29 Dipyridamole/ Aspirin (Aggrenox) 1 cap TWICE A DAY ORAL 01/16/18 09:00 02/15/18 08:59 Iopamidol (Isovue-370 150ml) 150 ml NOW PRN INJ Radiology Procedure 01/15/18 14:45 01/17/18 14:36 Levetiracetam (Keppra) 1,000 mg DAILY ORAL 01/16/18 09:00 02/15/18 08:59 Levothyroxine Sodium (Synthroid) 75 mcg ACBREAKFAST ORAL 01/16/18 06:30 02/15/18 06:29 Metoprolol Tartrate (Lopressor) 25 mg EVERY 12 HOURS ORAL 01/15/18 22:00 02/14/18 21:59 Morphine Sulfate (Morphine Sulfate) 4 mg Q4H PRN IVP Severe Pain (Pain Scale 7-10) 01/15/18 21:30 01/22/18 21:29 5/25/18 21:41 Pantoprazole (Protonix) 40 mg DAILY ORAL 01/16/18 09:00 02/15/18 08:59 Sodium Chloride 1,000 ml @ 75 mls/hr [id number] IV 01/15/18 21:30 02/14/18 21:29 01/15/18 21:40 Assessment/Plan Assessment/Plan Problem List: (1) Seizure ICD Codes: R56.9 - Unspecified convulsions SNOMED: 54773513 (2) Hypothyroidism ICD Codes: E03.9 - Hypothyroidism, unspecified SNOMED: 73280758 (3) GERD (gastroesophageal reflux disease) ICD Codes: K21.9 - Gastro-esophageal reflux disease without esophagitis SNOMED: 704618215 (4) HTN (hypertension) ICD Codes: I10 - Essential (primary) hypertension SNOMED: 29988301 (5) H/O Hodgkin's lymphoma ICD Codes: Z85.71 - Personal history of Hodgkin lymphoma SNOMED: 975594758 (6) Renal failure ICD Codes: N19 - Unspecified kidney failure SNOMED: 03772466 (7) Syncopal episodes ICD Codes: R55 - Syncope and collapse SNOMED: 037119806 (8) Generalized weakness ICD Codes: R53.1 - Weakness SNOMED: 88007520 (9) Hypotension ICD Codes: I95.9 - Hypotension, unspecified SNOMED: 60075262 (10) Scarring of lung ICD Codes: J98.4 - Other disorders of lung SNOMED: 984641083 Status: stable, progressing Assessment/Plan - IVF - UA and CXR negative - CT chest reviewed, largely unremarkable - check TTE, carotid, trops, BNP, TSH - tele monitoring - continue home meds. hold metoprolol in the setting of hypotension at this time - pain control and supportive care DVT Prophylaxis: SCD, HSQ Code Status: Full Hospital Classification Declaration: Based on this initial evaluation, and depending on the patient's clinical course, I anticipate that this patient will require hospitalization for 2-3 days for hypotension and close respiratory/ hemodynamic monitoring. Disposition: Once the patient is stable to leave the hospital, I anticipate the patient will likely be discharged to the following environment: home with vs SNF Linda Brewster M.D. January 16, 2018 13:52
[2018-01-16] MEDS: Tamsulosin 0.4mg cap ORAL SCH (21:24)
[2018-01-17] MEDS: Morphine Sulfate 4mg/ml Inj IVP PRN ×6 (00:39→23:31)
[2018-01-17] MEDS: Norco 5mg/325mg tab ORAL PRN ×2 (03:45→10:06)
[2018-01-17 04:00] VITALS: BP 123/68
[2018-01-17 08:00] VITALS: BP 120/67
[2018-01-17] MEDS: Aggrenox Cap ORAL SCH ×2 (10:04→17:51)
[2018-01-17] MEDS: Metoprolol 25mg tab ORAL SCH ×3 (10:05→21:00)
[2018-01-17] MEDS: Lyrica 50mg cap ORAL SCH ×3 (10:05→17:51)
[2018-01-17 16:00] VITALS: BP 127/65
[2018-01-17] MEDS ORDERED: DiphenhydrAMINE 50mg/ml Inj IVP PRN ×2 (17:15→17:30)
[2018-01-17] MEDS ORDERED: TraZODone 50mg tab ORAL PRN ×3 (17:15→22:00)
--- NOTE | 2018-01-17 17:30 | Internal Med Progress Note ---
Subjective Physician Name NeyLinda Attending Physician James Reyes MD Current Medications Medications (Trade) Dose Ordered Sig/Evelio Route PRN Reason Start Time Stop Time Status Last Admin Dose Admin Acetaminophen (Tylenol) 650 mg Q6H PRN ORAL Mild Pain/Temp > 100.5 01/15/18 21:30 02/14/18 21:29 Acetaminophen/ Hydrocodone Bitart ([place] 5/325) 1 tab Q4H PRN ORAL Moderate Pain (Pain Scale 4-6) 01/15/18 21:30 01/22/18 21:29 01/17/18 10:06 Baclofen (Lioresal) 10 mg THREE TIMES A DAY ORAL 01/16/18 23:58 02/15/18 23:57 01/17/18 13:23 Diphenhydramine HCl (Benadryl) 25 mg PRN PRN IVP Itching 01/17/18 17:15 02/16/18 17:14 UNV Dipyridamole/ Aspirin (Aggrenox) 1 cap TWICE A DAY ORAL 01/16/18 09:00 02/15/18 08:59 01/17/18 10:04 Folic Acid (Folate) 1 mg DAILY ORAL 01/16/18 09:00 02/15/18 08:59 01/17/18 10:04 Gabapentin (Neurontin) 300 mg THREE TIMES A DAY ORAL 01/16/18 23:59 02/15/18 23:58 01/17/18 13:23 Levetiracetam (Keppra) 1,000 mg DAILY ORAL 01/16/18 09:00 02/15/18 08:59 01/17/18 10:06 Levothyroxine Sodium (Synthroid) 75 mcg ACBREAKFAST ORAL 01/16/18 06:30 02/15/18 06:29 01/17/18 05:52 Metoprolol Tartrate (Lopressor) 25 mg EVERY 12 HOURS ORAL 01/15/18 22:00 02/14/18 21:59 01/17/18 10:05 Morphine Sulfate (Morphine Sulfate) 4 mg Q4H PRN IVP Severe Pain (Pain Scale 7-10) 01/15/18 21:30 01/22/18 21:29 01/17/18 16:27 Ondansetron HCl (Zofran) 4 mg Q6H PRN ORAL Nausea & Vomiting 01/15/18 23:45 02/14/18 23:44 Pantoprazole (Protonix) 40 mg DAILY ORAL 01/16/18 09:00 02/15/18 08:59 01/17/18 10:04 Pravastatin Sodium (Pravachol) 40 mg BEDTIME ORAL 01/15/18 23:49 02/14/18 23:48 01/16/18 21:24 Pregabalin (Lyrica) 50 mg THREE TIMES A DAY ORAL 01/15/18 23:49 02/14/18 23:48 01/17/18 13:23 Sodium Chloride 1,000 ml @ 75 mls/hr [id number] IV 01/15/18 21:30 02/14/18 21:29 01/17/18 00:38 Tamsulosin HCl (Flomax) 0.4 mg BEDTIME ORAL 01/15/18 23:50 02/14/18 23:49 01/16/18 21:24 Trazodone HCl (Desyrel) 50 mg BEDTIME PRN ORAL Insomnia 01/17/18 17:15 02/16/18 17:14 Allergies: Coded Allergies: No Known Allergies (Unverified , 04/29/16) Objective Last Vital Signs Date Time Temp Pulse Resp B/P (MAP) Pulse Ox O2 Delivery O2 Flow Rate FiO2 01/17/18 16:59 98.0 01/17/18 16:00 79 01/17/18 16:00 22 127/65 99 Room Air Microbiology Date/Time Source Procedure Growth Status 01/15/18 16:00 Blood Blood Culture - Preliminary NO GROWTH AFTER 24 HOURS Resulted 01/15/18 15:45 Blood Blood Culture - Preliminary NO GROWTH AFTER 24 HOURS Resulted Intake and Output 01/16/18 01/17/18 19:00 07:00 Intake Total 750 ml 1037.5 ml Output Total 400 ml 900 ml Balance 350 ml 137.5 ml Intake Oral 400 ml IV Total 750 ml 637.5 ml Output Urine Total 400 ml 900 ml # Bowel Movements 2 3 Assessment/Plan Assessment/Plan Patient History History Provided By: Patient Healthcare decision maker N Resuscitation status Advanced Directive on File no acute events overnight denies chest pain or sob ROS Review of Systems All Other Systems: negative except mentioned in HPI Physical Exam Physical Exam General Appearance: no apparent distress, alert HEENT: normocephalic, atraumatic Neck: non-tender, normal alignment Respiratory/Chest: chest wall non-tender, lungs clear, normal breath sounds Cardiovascular/Chest: normal peripheral pulses, normal rate Abdomen: normal bowel sounds, non tender, soft Extremities: normal range of motion, non-tender Skin Exam: normal pigmentation, warm/dry Neurologic: gyn II-XII grossly normal, no motor/sensory deficits, alert, oriented x 3 Last 24 Hour Vital Signs Date Time Temp Pulse Resp B/P (MAP) Pulse Ox O2 Delivery O2 Flow Rate FiO2 01/15/18 22:11 97.8 01/15/18 21:41 97.8 01/15/18 20:05 97.8 98 17 139/68 98 Room Air 97.9 01/15/18 20:00 98.5 95 20 132/88 100 Room Air 98.5 01/15/18 20:00 108 01/15/18 19:02 98 17 139/68 98 Room Air 01/15/18 14:50 113 21 92/58 96 Room Air 01/15/18 14:19 97.8 114 18 73/49 99 97.9 Laboratory Tests Test 01/15/18 14:26 01/15/18 14:29 01/15/18 16:00 01/15/18 17:23 White Blood Count 8.8 K/UL (4.8-10.8) Red Blood Count 5.06 M/UL (4.70-6.10) Hemoglobin 15.0 G/DL (14.2-18.0) Hematocrit 45.4 % (42.0-52.0) Mean Corpuscular Volume 90 FL (80-99) Mean Corpuscular Hemoglobin 29.7 PG (27.0-31.0) Mean Corpuscular Hemoglobin Concent 33.1 G/DL (32.0-36.0) Red Cell Distribution Width 11.5 % (11.6-14.8) L Platelet Count 297 K/UL (150-450) Mean Platelet Volume 6.3 FL (6.5-10.1) L Neutrophils (%) (Auto) 76.3 % (45.0-75.0) H Lymphocytes (%) (Auto) 13.9 % (20.0-45.0) L Monocytes (%) (Auto) 6.0 % (1.0-10.0) Eosinophils (%) (Auto) 2.9 % (0.0-3.0) Basophils (%) (Auto) 1.0 % (0.0-2.0) Prothrombin Time 10.4 SEC (9.30-11.50) Prothromb Time International Ratio 1.0 (0.9-1.1) Activated Partial Thromboplast Time 25 SEC (23-33) Sodium Level 138 MMOL/L (136-145) Potassium Level 3.5 MMOL/L (3.5-5.1) Chloride Level 99 MMOL/L (98-107) Carbon Dioxide Level 24 MMOL/L (21-32) Anion Gap 15 mmol/L (5-15) Blood Urea Nitrogen 19 mg/dL (7-18) H Creatinine 1.7 MG/DL (0.55-1.30) H Estimat Glomerular Filtration Rate 42.5 mL/min (>60) Glucose Level 100 MG/DL (74-106) Calcium Level 10.6 MG/DL (8.5-10.1) H Phosphorus Level 2.2 MG/DL (2.5-4.9) L Magnesium Level 1.4 MG/DL (1.8-2.4) L Total Bilirubin 0.8 MG/DL (0.2-1.0) Aspartate Amino Transf (AST/SGOT) 27 U/L (15-37) Alanine Aminotransferase (ALT/SGPT) 33 U/L (12-78) Alkaline Phosphatase 79 U/L (46-116) Total Creatine Kinase 189 U/L (26-308) Creatine Kinase MB 3.0 NG/ML (0.0-3.6) Creatine Kinase MB Relative Index 1.5 Troponin I 0.027 ng/mL (0.000-0.056) Pro-B-Type Natriuretic Peptide 1064 pg/mL (0-125) H Total Protein 9.1 G/DL (6.4-8.2) H Albumin 4.1 G/DL (3.4-5.0) Globulin 5.0 g/dL Albumin/Globulin Ratio 0.8 (1.0-2.7) L Lipase 105 U/L (73-393) Arterial Blood pH 7.470 (7.350-7.450) Arterial Blood Partial Pressure CO2 33.6 mmHg (35.0-45.0) L Arterial Blood Partial Pressure O2 86.8 mmHg (75.0-100.0) Arterial Blood HCO3 24.3 mmol/L (22.0-26.0) Arterial Blood Oxygen Saturation 96.0 % (92.0-98.0) Arterial Blood Base Excess 1.4 Mitchel Test Positive Urine Color Yellow Urine Appearance Clear Urine pH 7 (4.5-8.0) Urine Specific [place] 1.015 (1.005-1.035) Urine Protein 2+ (NEGATIVE) H Urine Glucose (UA) Negative (NEGATIVE) Urine Ketones Negative (NEGATIVE) Urine Occult Blood 1+ (NEGATIVE) H Urine Nitrite Negative (NEGATIVE) Urine Bilirubin Negative (NEGATIVE) Urine Urobilinogen Normal MG/DL (0.0-1.0) Urine Leukocyte Esterase Negative (NEGATIVE) Urine RBC 2-4 /HPF (0 - 0) H Urine WBC 0-2 /HPF (0 - 0) Urine Squamous Epithelial Cells Occasional /LPF Urine Bacteria Few /HPF (NONE) Urine Hyaline Casts 2-4 /LPF (NONE) H Lactic Acid Level 2.90 mmol/L (0.66-2.22) H 1.80 mmol/L (0.66-2.22) Height (Feet): 5 Height (Inches): 6.00 Weight (Pounds): 150 Medications Current Medications Medications (Trade) Dose Ordered Sig/Evelio Route PRN Reason Start Time Stop Time Status Last Admin Dose Admin Acetaminophen (Tylenol) 650 mg Q6H PRN ORAL Mild Pain/Temp > 100.5 01/15/18 21:30 02/14/18 21:29 Acetaminophen/ Hydrocodone Bitart ([place] 5/325) 1 tab Q4H PRN ORAL Moderate Pain (Pain Scale 4-6) 01/15/18 21:30 01/22/18 21:29 Dipyridamole/ Aspirin (Aggrenox) 1 cap TWICE A DAY ORAL 01/16/18 09:00 02/15/18 08:59 Iopamidol (Isovue-370 150ml) 150 ml NOW PRN INJ Radiology Procedure 01/15/18 14:45 01/17/18 14:36 Levetiracetam (Keppra) 1,000 mg DAILY ORAL 01/16/18 09:00 02/15/18 08:59 Levothyroxine Sodium (Synthroid) 75 mcg ACBREAKFAST ORAL 01/16/18 06:30 02/15/18 06:29 Metoprolol Tartrate (Lopressor) 25 mg EVERY 12 HOURS ORAL 01/15/18 22:00 02/14/18 21:59 Morphine Sulfate (Morphine Sulfate) 4 mg Q4H PRN IVP Severe Pain (Pain Scale 7-10) 01/15/18 21:30 01/22/18 21:29 01/15/18 21:41 Pantoprazole (Protonix) 40 mg DAILY ORAL 01/16/18 09:00 02/15/18 08:59 Sodium Chloride 1,000 ml @ 75 mls/hr [id number] IV 01/15/18 21:30 02/14/18 21:29 01/15/18 21:40 Assessment/Plan Assessment/Plan Problem List: (1) Seizure ICD Codes: R56.9 - Unspecified convulsions SNOMED: 03448637 (2) Hypothyroidism ICD Codes: E03.9 - Hypothyroidism, unspecified SNOMED: 25512426 (3) GERD (gastroesophageal reflux disease) ICD Codes: K21.9 - Gastro-esophageal reflux disease without esophagitis SNOMED: 288687513 (4) HTN (hypertension) ICD Codes: I10 - Essential (primary) hypertension SNOMED: 23414575 (5) H/O Hodgkin's lymphoma ICD Codes: Z85.71 - Personal history of Hodgkin lymphoma SNOMED: 932664134 (6) Renal failure ICD Codes: N19 - Unspecified kidney failure SNOMED: 47886186 (7) Syncopal episodes ICD Codes: R55 - Syncope and collapse SNOMED: 732071765 (8) Generalized weakness ICD Codes: R53.1 - Weakness SNOMED: 16147361 (9) Hypotension ICD Codes: I95.9 - Hypotension, unspecified SNOMED: 14938056 (10) Scarring of lung ICD Codes: J98.4 - Other disorders of lung SNOMED: 480387758 Status: stable, progressing Assessment/Plan - IVF - UA and CXR negative - CT chest reviewed, largely unremarkable - f/u TTE, - f/u carotid duplex - tele monitoring - continue home meds. hold metoprolol in the setting of hypotension at this time - pain control and supportive care DVT Prophylaxis: SCD, HSQ Code Status: Full Hospital Classification Declaration: Based on this initial evaluation, and depending on the patient's clinical course, I anticipate that this patient will require hospitalization for 2-3 days for hypotension and close respiratory/ hemodynamic monitoring. Disposition: Once the patient is stable to leave the hospital, I anticipate the patient will likely be discharged to the following environment: home with HH vs SNF Linda Brewster M.D. January 17, 2018 17:30
[2018-01-17 20:00] VITALS: BP 121/52
[2018-01-17] MEDS: Tamsulosin 0.4mg cap ORAL SCH ×2 (20:33→21:00)
[2018-01-17] MEDS ORDERED: Norco 5mg/325mg tab ORAL PRN (21:30)
[2018-01-18] VITALS: BP 129/68
[2018-01-18 04:00] VITALS: BP 110/65
[2018-01-18] MEDS: Morphine Sulfate 4mg/ml Inj IVP PRN ×5 (05:20→23:01)
[2018-01-18 08:00] VITALS: BP 113/47
[2018-01-18] MEDS: Metoprolol 25mg tab ORAL SCH ×2 (09:00→21:00)
[2018-01-18] MEDS: Aggrenox Cap ORAL SCH ×2 (09:48→17:29)
[2018-01-18] MEDS: Lyrica 50mg cap ORAL SCH ×3 (09:49→17:29)
[2018-01-18 12:00] VITALS: BP 114/66
[2018-01-18 13:51] LABS: BASOPHILS % (AUTO) 1.5 % (0.0-2.0); EOSINOPHILS % (AUTO) 4.6 % (0.0-3.0); HEMATOCRIT 33.4 % (42.0-52.0); HEMOGLOBIN 10.9 G/DL (14.2-18.0); LYMPHOCYTES % (AUTO) 12.3 % (20.0-45.0); MEAN CORPUSCULAR VOLUME 92 FL (80-99); MONOCYTES % (AUTO) 6.4 % (1.0-10.0); NEUTROPHILS % (AUTO) 75.3 % (45.0-75.0); PLATELET COUNT 186 K/UL (150-450); RED BLOOD COUNT 3.65 M/UL (4.70-6.10); RED CELL DISTRIBUTION WIDTH 12.7 % (11.6-14.8); WHITE BLOOD COUNT 7.7 K/UL (4.8-10.8)
[2018-01-18 14:04] LABS: ANION GAP 9 mmol/L (5-15); BLOOD UREA NITROGEN 13 mg/dL (7-18); CALCIUM 8.9 MG/DL (8.5-10.1); CARBON DIOXIDE 24 MMOL/L (21-32); CHLORIDE 105 MMOL/L (98-107); CREATININE 1.1 MG/DL (0.55-1.30); POTASSIUM 4.2 MMOL/L (3.5-5.1); SODIUM 138 MMOL/L (136-145)
[2018-01-18 14:08] LABS: ALANINE AMINOTRANSFERASE 26 U/L (12-78); ALBUMIN 3.2 G/DL (3.4-5.0); ALBUMIN/GLOBULIN RATIO 0.8 (1.0-2.7); ALKALINE PHOSPHATASE 56 U/L (46-116); ASPARTATE AMINO TRANSFERASE 19 U/L (15-37); BILIRUBIN,TOTAL 0.2 MG/DL (0.2-1.0)
[2018-01-18] MEDS: DiphenhydrAMINE 50mg/ml Inj IVP PRN ×2 (15:15→21:14)
[2018-01-18 16:00] VITALS: BP 124/75
[2018-01-18 20:33] VITALS: BP 123/79
[2018-01-18] MEDS: Tamsulosin 0.4mg cap ORAL SCH (21:04)
[2018-01-18] MEDS ORDERED: Docusate 100mg cap ORAL PRN (22:00)
--- NOTE | 2018-01-18 23:18 | Cardiology Report ---
APPROVED REPORT EKG Measurement Heart [id number] ME 160P79 [id number] GCs118 Sinus tachycardia Right atrial enlargement Borderline ECG
--- NOTE | 2018-01-18 23:18 | General Progress Note ---
Assessment/Plan Problem List: (1) Seizure ICD Codes: R56.9 - Unspecified convulsions SNOMED: 60104998 (2) Hypothyroidism ICD Codes: E03.9 - Hypothyroidism, unspecified SNOMED: 58670202 (3) GERD (gastroesophageal reflux disease) ICD Codes: K21.9 - Gastro-esophageal reflux disease without esophagitis SNOMED: 880130883 (4) HTN (hypertension) ICD Codes: I10 - Essential (primary) hypertension SNOMED: 16677499 (5) H/O Hodgkin's lymphoma ICD Codes: Z85.71 - Personal history of Hodgkin lymphoma SNOMED: 012213298 (6) Renal failure ICD Codes: N19 - Unspecified kidney failure SNOMED: 19515937 (7) Syncopal episodes ICD Codes: R55 - Syncope and collapse SNOMED: 411494582 (8) Generalized weakness ICD Codes: R53.1 - Weakness SNOMED: 35275480 (9) Hypotension ICD Codes: I95.9 - Hypotension, unspecified SNOMED: 84489628 (10) Scarring of lung ICD Codes: J98.4 - Other disorders of lung SNOMED: 218746414 Status: stable, progressing Assessment/Plan - IVF - UA and CXR negative - CT chest reviewed, largely unremarkable - f/u TTE -- 60%EF - f/u carotid duplex -- insignificant - tele monitoring - continue home meds. hold metoprolol in the setting of hypotension at this time - pain control and supportive care PATIENT IS MEDICALLY CLEARED FOR DISCHARGE. AWAITING ENTRY ENGINEER REC'S FOR SAFE DISCHARGE. DVT Prophylaxis: SCD, HSQ Code Status: Full Hospital Classification Declaration: Based on this initial evaluation, and depending on the patient's clinical course, I anticipate that this patient will require hospitalization for 2-3 days for hypotension and close respiratory/ hemodynamic monitoring. Disposition: Once the patient is stable to leave the hospital, I anticipate the patient will likely be discharged to the following environment: HALF-WAY VS. ENTRY ENGINEER REC'S Subjective Date patient seen: January 18, 2018 Time patient seen: 11:00 Allergies: Coded Allergies: No Known Allergies (Unverified , 04/29/16) Subjective - AF, HDS - denies cp, sob - doing well. states that he does not have a place to go to because his kicked him out of his house Objective Last 24 Hour Vital Signs Date Time Temp Pulse Resp B/P (MAP) Pulse Ox O2 Delivery O2 Flow Rate FiO2 01/18/18 21:00 100 123/79 01/18/18 20:33 99.1 100 17 123/79 97 99.1 01/18/18 16:00 97.3 90 20 124/75 97 Room Air 97.3 01/18/18 12:00 97.2 83 20 114/66 96 Room Air 97.2 01/18/18 09:00 73 113/47 01/18/18 08:00 97.7 73 20 113/47 98 Room Air 97.7 01/18/18 04:00 98.5 69 20 110/65 97 98.5 01/18/18 00:00 98.7 81 20 129/68 97 98.7 Intake and Output 01/17/18 01/18/18 19:00 07:00 Intake Total 1112.5 ml 525 ml Output Total 900 ml 1800 ml Balance 212.5 ml -1275 ml Intake Oral 600 ml IV Total 512.5 ml 525 ml Output Urine Total 900 ml 1800 ml Laboratory Tests 01/18/18 13:36: White Blood Count 7.7, Red Blood Count 3.65L, Hemoglobin 10.9L, Hematocrit 33.4L , Mean Corpuscular Volume 92, Mean Corpuscular Hemoglobin 30.0, Mean Corpuscular Hemoglobin Concent 32.7, Red Cell Distribution Width 12.7, Platelet Count 186, Mean Platelet Volume 6.0L, Neutrophils (%) (Auto) 75.3H, Lymphocytes (%) (Auto) 12.3L, Monocytes (%) (Auto) 6.4, Eosinophils (%) (Auto) 4.6H, Basophils (%) (Auto) 1.5, Sodium Level 138, Potassium Level 4.2, Chloride Level 105, Carbon Dioxide Level 24, Anion Gap 9, Blood Urea Nitrogen 13, Creatinine 1.1, Estimat Glomerular Filtration Rate > 60, Glucose Level 120H, Calcium Level 8.9, Magnesium Level 1.5L, Total Bilirubin 0.2, Aspartate Amino Transf (AST/SGOT ) 19, Alanine Aminotransferase (ALT/SGPT) 26, Alkaline Phosphatase 56, Total Protein 7.2, Albumin 3.2L, Globulin 4.0, Albumin/Globulin Ratio 0.8L Height (Feet): 5 Height (Inches): 6.00 Weight (Pounds): 159 General Appearance: no apparent distress, alert EENT: PERRL/EOMI, normal ENT inspection Neck: non-tender, normal alignment, supple Cardiovascular: normal peripheral pulses, normal rate, regular rhythm Respiratory/Chest: chest wall non-tender, lungs clear, normal breath sounds Abdomen: normal bowel sounds, non tender, soft Extremities: normal range of motion Neurologic: stone sandblaster II-XII grossly normal, no motor/sensory deficits, alert, oriented x 3 Skin: normal pigmentation, warm/dry Tequila Patiño NP January 18, 2018 23:18
[2018-01-19 00:17] VITALS: BP 120/74
[2018-01-19] MEDS: Morphine Sulfate 4mg/ml Inj IVP PRN ×4 (03:26→21:25)
[2018-01-19] MEDS: DiphenhydrAMINE 50mg/ml Inj IVP PRN ×3 (03:32→20:04)
[2018-01-19 04:12] VITALS: BP 158/91
[2018-01-19 08:00] VITALS: BP 134/73
[2018-01-19 08:02] LABS: BASOPHILS % (AUTO) 1.6 % (0.0-2.0); EOSINOPHILS % (AUTO) 3.9 % (0.0-3.0); HEMATOCRIT 33.6 % (42.0-52.0); HEMOGLOBIN 11.2 G/DL (14.2-18.0); LYMPHOCYTES % (AUTO) 12.5 % (20.0-45.0); MEAN CORPUSCULAR VOLUME 91 FL (80-99); MONOCYTES % (AUTO) 6.2 % (1.0-10.0); NEUTROPHILS % (AUTO) 75.7 % (45.0-75.0); PLATELET COUNT 178 K/UL (150-450); RED BLOOD COUNT 3.69 M/UL (4.70-6.10); RED CELL DISTRIBUTION WIDTH 12.8 % (11.6-14.8); WHITE BLOOD COUNT 8.3 K/UL (4.8-10.8)
[2018-01-19] MEDS: Lyrica 50mg cap ORAL SCH ×3 (08:12→17:20)
[2018-01-19] MEDS: Aggrenox Cap ORAL SCH ×2 (08:13→17:19)
[2018-01-19] MEDS: Metoprolol 25mg tab ORAL SCH ×2 (08:14→21:25)
[2018-01-19 08:20] LABS: ANION GAP 5 mmol/L (5-15); BLOOD UREA NITROGEN 16 mg/dL (7-18); CALCIUM 8.6 MG/DL (8.5-10.1); CARBON DIOXIDE 27 MMOL/L (21-32); CHLORIDE 107 MMOL/L (98-107); CREATININE 1.1 MG/DL (0.55-1.30); POTASSIUM 4.5 MMOL/L (3.5-5.1); SODIUM 139 MMOL/L (136-145)
--- NOTE | 2018-01-19 10:11 | Cardiology Report ---
APPROVED REPORT EXAM: Two-dimensional and M-mode echocardiogram with Doppler and color Doppler. INDICATION Dizziness and Vertigo M-Mode DIMENSIONS IVSd0.9 (0.7-1.1cm)Left Atrium (MM)2.8 (1.6-4.0cm) LVDd4.0 (3.5-5.6cm)Aortic Root3.3 (2.0-3.7cm) PWd1.3 (0.7-1.1cm)Aortic Cusp Exc.2.0 (1.5-2.0cm) IVSs1.3 cm LVDs2.7 (2.5-4.0cm) PWs2.0 cm Technically difficult study due to poor acoustical windows. Normal left ventricular chamber size, systolic function and wall motion to extent visualized. Left ventricular ejection fraction estimated to be 65-70 %. No evidence of left ventricular hypertrophy. No evidence of pericardial effusion. All other cardiac chamber sizes are within normal limits. Mildly Focal aortic valve sclerosis with adequate cusp excursion. Mildly Thickened mitral valve leaflets with normal excursion. Mildly Mitral annulus and aortic root calcification. Normal pulmonic valve structure. Normal tricuspid valve structure. IVC dilated at size 2.3 without physiologic collapse, suggestive of increased RA pressure. A color flow and spectral Doppler study was performed and revealed: No aortic regurgitation. Trace mitral regurgitation. Normal left ventricular diastolic function . Trace tricuspid regurgitation. Tricuspid systolic velocities suggests peak right ventricular systolic pressure of 22 No Pulmonic regurgitation present.
[2018-01-19 12:00] VITALS: BP 125/65
[2018-01-19 16:00] VITALS: BP 132/70
[2018-01-19 20:00] VITALS: BP 105/67
--- NOTE | 2018-01-19 21:17 | General Progress Note ---
Assessment/Plan Problem List: (1) Seizure ICD Codes: R56.9 - Unspecified convulsions SNOMED: 15770387 (2) Hypothyroidism ICD Codes: E03.9 - Hypothyroidism, unspecified SNOMED: 83420935 (3) GERD (gastroesophageal reflux disease) ICD Codes: K21.9 - Gastro-esophageal reflux disease without esophagitis SNOMED: 096355818 (4) HTN (hypertension) ICD Codes: I10 - Essential (primary) hypertension SNOMED: 13222759 (5) H/O Hodgkin's lymphoma ICD Codes: Z85.71 - Personal history of Hodgkin lymphoma SNOMED: 732208095 (6) Renal failure ICD Codes: N19 - Unspecified kidney failure SNOMED: 74126619 (7) Syncopal episodes ICD Codes: R55 - Syncope and collapse SNOMED: 556344364 (8) Generalized weakness ICD Codes: R53.1 - Weakness SNOMED: 25685046 (9) Hypotension ICD Codes: I95.9 - Hypotension, unspecified SNOMED: 11428455 (10) Scarring of lung ICD Codes: J98.4 - Other disorders of lung SNOMED: 677820002 Status: stable, progressing Assessment/Plan - IVF - UA and CXR negative - CT chest reviewed, largely unremarkable - f/u TTE -- 60%EF - f/u carotid duplex -- insignificant - tele monitoring - continue home meds. - pain control and supportive care PATIENT IS MEDICALLY CLEARED FOR DISCHARGE TO SNF. DVT Prophylaxis: SCD, HSQ Code Status: Full Hospital Classification Declaration: Based on this initial evaluation, and depending on the patient's clinical course, I anticipate that this patient will require hospitalization for 2-3 days for hypotension and close respiratory/ hemodynamic monitoring. Disposition: Once the patient is stable to leave the hospital, I anticipate the patient will likely be discharged to the following environment: LONGTERM VS. SOIL ENGINEER REC'S Subjective Date patient seen: January 19, 2018 Time patient seen: 12:44 Allergies: Coded Allergies: No Known Allergies (Unverified , 04/29/16) Subjective - AF, HDS - denies cp, sob - reports leg pain, requesting dilaudid - seen by social service liaison and PT, recommending SNF. d/w CM, pending SNF placement Objective Last 24 Hour Vital Signs Date Time Temp Pulse Resp B/P (MAP) Pulse Ox O2 Delivery O2 Flow Rate FiO2 01/19/18 16:00 97.8 81 18 132/70 98 97.8 01/19/18 12:00 97.7 77 18 125/65 98 97.7 01/19/18 08:14 90 138/90 01/19/18 08:00 98.1 83 18 134/73 98 98.1 01/19/18 04:12 98.4 90 18 158/91 98 98.4 01/19/18 00:17 98.1 96 16 120/74 97 98.1 Intake and Output 01/18/18 01/19/18 19:00 07:00 Intake Total 1140 ml 675 ml Output Total 1500 ml Balance 1140 ml -825 ml Intake Oral 240 ml IV Total 900 ml 675 ml Output Urine Total 1500 ml # Voids 3 # Bowel Movements 1 Laboratory Tests 01/19/18 07:10: White Blood Count 8.3, Red Blood Count 3.69L, Hemoglobin 11.2L, Hematocrit 33.6L , Mean Corpuscular Volume 91, Mean Corpuscular Hemoglobin 30.4, Mean Corpuscular Hemoglobin Concent 33.4, Red Cell Distribution Width 12.8, Platelet Count 178, Mean Platelet Volume 6.4L, Neutrophils (%) (Auto) 75.7H, Lymphocytes (%) (Auto) 12.5L, Monocytes (%) (Auto) 6.2, Eosinophils (%) (Auto) 3.9H, Basophils (%) (Auto) 1.6, Sodium Level 139, Potassium Level 4.5, Chloride Level 107, Carbon Dioxide Level 27, Anion Gap 5, Blood Urea Nitrogen 16, Creatinine 1.1, Estimat Glomerular Filtration Rate > 60, Glucose Level 110H, Calcium Level 8.6 Height (Feet): 5 Height (Inches): 6.00 Weight (Pounds): 159 General Appearance: no apparent distress, alert EENT: PERRL/EOMI, normal ENT inspection Neck: non-tender, normal alignment, supple Cardiovascular: normal peripheral pulses, normal rate, regular rhythm Respiratory/Chest: chest wall non-tender, lungs clear, normal breath sounds Abdomen: normal bowel sounds, non tender, soft Extremities: normal range of motion Neurologic: unloading checker II-XII grossly normal, no motor/sensory deficits, alert, oriented x 3 Skin: normal pigmentation, warm/dry Tequila Patiño VISITOR USE ASSISTANT January 19, 2018 21:17
[2018-01-19] MEDS: Tamsulosin 0.4mg cap ORAL SCH (21:25)
[2018-01-20] VITALS: BP 116/71
[2018-01-20] MEDS: MS Contin 15mg tab ORAL SCH ×2 (00:14→09:56)
[2018-01-20] MEDS: Morphine Sulfate 4mg/ml Inj IVP PRN ×5 (01:13→20:48)
[2018-01-20] MEDS: DiphenhydrAMINE 50mg/ml Inj IVP PRN ×3 (03:42→22:40)
[2018-01-20 04:00] VITALS: BP 131/69
[2018-01-20 08:00] VITALS: BP 138/84
[2018-01-20 08:16] LABS: ANION GAP 9 mmol/L (5-15); BLOOD UREA NITROGEN 17 mg/dL (7-18); CALCIUM 8.6 MG/DL (8.5-10.1); CARBON DIOXIDE 24 MMOL/L (21-32); CHLORIDE 106 MMOL/L (98-107); CREATININE 1.1 MG/DL (0.55-1.30); POTASSIUM 4.3 MMOL/L (3.5-5.1); SODIUM 139 MMOL/L (136-145)
[2018-01-20 08:39] LABS: EOSINOPHILS % (AUTO) 5.6 % (0.0-3.0); HEMATOCRIT 32.8 % (42.0-52.0); HEMOGLOBIN 10.8 G/DL (14.2-18.0); LYMPHOCYTES % (AUTO) 16.3 % (20.0-45.0); MEAN CORPUSCULAR VOLUME 92 FL (80-99); MONOCYTES % (AUTO) 8.8 % (1.0-10.0); NEUTROPHILS % (AUTO) 68.4 % (45.0-75.0); PLATELET COUNT 188 K/UL (150-450); RED BLOOD COUNT 3.55 M/UL (4.70-6.10); RED CELL DISTRIBUTION WIDTH 12.9 % (11.6-14.8); WHITE BLOOD COUNT 6.2 K/UL (4.8-10.8)
[2018-01-20] MEDS: Aggrenox Cap ORAL SCH ×2 (09:00→17:55)
--- NOTE | 2018-01-20 09:35 | Diagnostic Imaging Report ---
APPROVED REPORT CPT Code: 70151 Vascular Symptoms Comments: DIZZINESS. Doppler Spectral Velocity Analysis RightLeft arteries. The Doppler spectral flow analysis indicates the degree of stenosis is minimal (20%) in the common carotid arteries, (10%-20%) in the internal carotid arteries and the external carotid arteries. VERTEBRAL- The vertebral arteries are patent, without evidence of stenosis or steal.
[2018-01-20] MEDS: Metoprolol 25mg tab ORAL SCH ×2 (09:55→20:48)
[2018-01-20] MEDS: Lyrica 50mg cap ORAL SCH ×3 (09:56→17:54)
[2018-01-20 12:00] VITALS: BP 106/68
--- NOTE | 2018-01-20 14:18 | General Progress Note ---
Assessment/Plan Problem List: (1) Seizure ICD Codes: R56.9 - Unspecified convulsions SNOMED: 97827202 (2) Hypothyroidism ICD Codes: E03.9 - Hypothyroidism, unspecified SNOMED: 07917614 (3) GERD (gastroesophageal reflux disease) ICD Codes: K21.9 - Gastro-esophageal reflux disease without esophagitis SNOMED: 651055552 (4) HTN (hypertension) ICD Codes: I10 - Essential (primary) hypertension SNOMED: 03838675 (5) H/O Hodgkin's lymphoma ICD Codes: Z85.71 - Personal history of Hodgkin lymphoma SNOMED: 241391249 (6) Renal failure ICD Codes: N19 - Unspecified kidney failure SNOMED: 04599119 (7) Syncopal episodes ICD Codes: R55 - Syncope and collapse SNOMED: 900730120 (8) Generalized weakness ICD Codes: R53.1 - Weakness SNOMED: 86351618 (9) Hypotension ICD Codes: I95.9 - Hypotension, unspecified SNOMED: 43309479 (10) Scarring of lung ICD Codes: J98.4 - Other disorders of lung SNOMED: 183554081 Status: stable, progressing Assessment/Plan - pain management consulted - IVF - UA and CXR negative - CT chest reviewed, largely unremarkable - f/u TTE -- 60%EF - f/u carotid duplex -- insignificant - tele monitoring - continue home meds. - pain control and supportive care PATIENT IS MEDICALLY CLEARED FOR DISCHARGE TO SNF. DVT Prophylaxis: SCD, HSQ Code Status: Full Hospital Classification Declaration: Based on this initial evaluation, and depending on the patient's clinical course, I anticipate that this patient will require hospitalization for 2-3 days for hypotension and close respiratory/ hemodynamic monitoring. Disposition: Once the patient is stable to leave the hospital, I anticipate the patient will likely be discharged to the following environment: JAIL VS. COLORING MACHINE OPERATOR REC'S Subjective Date patient seen: January 20, 2018 Time patient seen: 12:00 Allergies: Coded Allergies: No Known Allergies (Unverified , 04/29/16) Subjective - continuing to report leg pain - evaluated by PT, recommending SNF placement - pending SNF placement Objective Last 24 Hour Vital Signs Date Time Temp Pulse Resp B/P (MAP) Pulse Ox O2 Delivery O2 Flow Rate FiO2 01/20/18 12:00 98.5 69 18 106/68 98 Room Air 98.5 5/30/18 11:53 98.5 01/20/18 11:23 98.8 01/20/18 09:56 98.8 01/20/18 09:55 77 138/84 01/20/18 08:00 98.8 77 20 138/84 99 Room Air 98.8 01/20/18 04:00 98.1 63 20 131/69 98 98.1 01/20/18 00:00 97.8 80 19 116/71 98 97.8 01/19/18 21:25 81 132/70 01/19/18 20:00 98.2 71 19 105/67 97 98.2 01/19/18 16:00 97.8 81 18 132/70 98 97.8 Intake and Output 01/19/18 01/20/18 19:00 07:00 Intake Total 240 ml Balance 240 ml Intake Oral 240 ml # Voids 5 4 # Bowel Movements 1 2 Laboratory Tests 01/20/18 06:30: Sodium Level 139, Potassium Level 4.3, Chloride Level 106, Carbon Dioxide Level 24, Anion Gap 9, Blood Urea Nitrogen 17, Creatinine 1.1, Estimat Glomerular Filtration Rate > 60, Glucose Level 114H, Calcium Level 8.6 01/20/18 08:18: White Blood Count 6.2, Red Blood Count 3.55L, Hemoglobin 10.8L, Hematocrit 32.8L , Mean Corpuscular Volume 92, Mean Corpuscular Hemoglobin 30.5, Mean Corpuscular Hemoglobin Concent 33.1, Red Cell Distribution Width 12.9, Platelet Count 188, Mean Platelet Volume 7.9, Neutrophils (%) (Auto) 68.4, Lymphocytes (% ) (Auto) 16.3L, Monocytes (%) (Auto) 8.8, Eosinophils (%) (Auto) 5.6H, Basophils (%) (Auto) 1.0 Height (Feet): 5 Height (Inches): 6.00 Weight (Pounds): 143 General Appearance: no apparent distress, alert EENT: PERRL/EOMI, normal ENT inspection Neck: non-tender, normal alignment, supple Cardiovascular: normal peripheral pulses, normal rate, regular rhythm Respiratory/Chest: chest wall non-tender, lungs clear, normal breath sounds Abdomen: normal bowel sounds, non tender, soft Extremities: normal range of motion Neurologic: electrical machine builder II-XII grossly normal, no motor/sensory deficits, alert, oriented x 3 Skin: normal pigmentation, warm/dry Tequila Patiño NP January 20, 2018 14:18
[2018-01-20 16:00] VITALS: BP 133/82
--- NOTE | 2018-01-20 19:33 | Consultation ---
History of Present Illness General Date patient seen: January 20, 2018 Chief Complaint: General Complaint Present Illness HPI 52 y/o male with hx of seizure disorder, Hodgkin's lymphoma in remission, hypothyroidism, HTN, GERD, and chemo-related neuropathy presented for bilateral leg pain and hypotension. The pt stated that he is unable to walk however he was observed walking the pt stated that he has problem with and may not go back home. the pt stated that if he has a cane he will go back to a friend . Allergies: Coded Allergies: No Known Allergies (Unverified , 04/29/16) Medication History Scheduled Amoxicillin* (Amoxil*), 500 MG ORAL EVERY 8 HOURS, (Reported) Aspirin/Dipyridamole* (Aggrenox 25 Mg-200 Mg Capsule*), 1 CAP ORAL TWICE A DAY, (Reported) Aspirin/Dipyridamole* (Aggrenox 25 Mg-200 Mg Capsule*), 1 CAP ORAL TWICE A DAY, (Reported) Baclofen* (Baclofen*), 10 MG ORAL THREE TIMES A DAY, (Reported) Escitalopram Oxalate* (Lexapro*), 20 MG ORAL DAILY, (Reported) Folic Acid* (Folic Acid*), 1 MG ORAL DAILY, (Reported) Gabapentin* (Gabapentin*), 300 MG ORAL THREE TIMES A DAY, (Reported) Levetiracetam (Levetiracetam), 1,000 MG ORAL TWICE A DAY, (Reported) Levetiracetam* (Levetiracetam*), 1,000 MG ORAL DAILY, (Reported) Levothyroxine Sodium* (Levothyroxine Sodium*), Unknown Dose ORAL DAILY, ( Reported) Levothyroxine Sodium* (Levothyroxine Sodium*), 75 MCG ORAL DAILY, (Reported) Metoprolol Tartrate* (Metoprolol Tartrate*), Unknown Dose ORAL EVERY 12 HOURS, ( Reported) Metoprolol Tartrate* (Metoprolol Tartrate*), 25 MG ORAL EVERY 12 HOURS, ( Reported) Omeprazole (Omeprazole), 20 MG ORAL DAILY, (Reported) Pantoprazole* (Pantoprazole*), 40 MG ORAL DAILY, (Reported) Pantoprazole* (Pantoprazole*), 40 MG ORAL DAILY, (Reported) Pravastatin Sodium (Pravachol), 40 MG ORAL BEDTIME, (Reported) Pregabalin (Lyrica), 50 MG ORAL THREE TIMES A DAY, (Reported) Tamsulosin Hcl (Tamsulosin Hcl*), 0.4 MG ORAL BEDTIME, (Reported) Scheduled PRN Acetaminophen With Codeine 300MG/30MG (T#3)* (Tylenol With Codeine #3 Tablet*), 1 TAB ORAL Q4H PRN for For Pain, (Reported) Ondansetron* (Zofran*), 4 MG ORAL Q6H PRN for Nausea & Vomiting, (Reported) Patient History Limited by: medical condition History Provided By: Patient, Medical Record Healthcare decision maker N Resuscitation status Full Code Advanced Directive on File Past Medical/Surgical History Past Medical/Surgical History: (1) Left-sided weakness (2) Generalized weakness (3) Scarring of lung (4) Hypothyroidism (5) Renal failure (6) Seizure (7) Syncopal episodes (8) GERD (gastroesophageal reflux disease) (9) Hypotension (10) HTN (hypertension) (11) H/O Hodgkin's lymphoma Review of Systems Psychiatric: Reports: prior hx, anxiety, depressed feelings Physical Exam General Appearance: no apparent distress, alert Neurologic: oriented x 3, responsive, depressed affect Last 24 Hour Vital Signs Date Time Temp Pulse Resp B/P (MAP) Pulse Ox O2 Delivery O2 Flow Rate FiO2 01/20/18 16:28 98.0 01/20/18 16:00 98.0 80 20 133/82 98 Room Air 98.0 01/20/18 12:00 98.5 69 18 106/68 98 Room Air 98.5 01/20/18 11:23 98.8 01/20/18 09:56 98.8 01/20/18 09:55 77 138/84 01/20/18 08:00 98.8 77 20 138/84 99 Room Air 98.8 01/20/18 04:00 98.1 63 20 131/69 98 98.1 01/20/18 00:00 97.8 80 19 116/71 98 97.8 01/19/18 21:25 81 132/70 01/19/18 20:00 98.2 71 19 105/67 97 98.2 Intake and Output 01/19/18 01/20/18 19:00 07:00 Intake Total 240 ml Balance 240 ml Intake Oral 240 ml # Voids 5 4 # Bowel Movements 1 2 Laboratory Tests Test 01/20/18 06:30 01/20/18 08:18 Sodium Level 139 MMOL/L (136-145) Potassium Level 4.3 MMOL/L (3.5-5.1) Chloride Level 106 MMOL/L (98-107) Carbon Dioxide Level 24 MMOL/L (21-32) Anion Gap 9 mmol/L (5-15) Blood Urea Nitrogen 17 mg/dL (7-18) Creatinine 1.1 MG/DL (0.55-1.30) Estimat Glomerular Filtration Rate > 60 mL/min (>60) Glucose Level 114 MG/DL (74-106) H Calcium Level 8.6 MG/DL (8.5-10.1) White Blood Count 6.2 K/UL (4.8-10.8) Red Blood Count 3.55 M/UL (4.70-6.10) L Hemoglobin 10.8 G/DL (14.2-18.0) L Hematocrit 32.8 % (42.0-52.0) L Mean Corpuscular Volume 92 FL (80-99) Mean Corpuscular Hemoglobin 30.5 PG (27.0-31.0) Mean Corpuscular Hemoglobin Concent 33.1 G/DL (32.0-36.0) Red Cell Distribution Width 12.9 % (11.6-14.8) Platelet Count 188 K/UL (150-450) Mean Platelet Volume 7.9 FL (6.5-10.1) Neutrophils (%) (Auto) 68.4 % (45.0-75.0) Lymphocytes (%) (Auto) 16.3 % (20.0-45.0) L Monocytes (%) (Auto) 8.8 % (1.0-10.0) Eosinophils (%) (Auto) 5.6 % (0.0-3.0) H Basophils (%) (Auto) 1.0 % (0.0-2.0) Height (Feet): 5 Height (Inches): 6.00 Weight (Pounds): 143 Medications Current Medications Medications (Trade) Dose Ordered Sig/Evelio Route PRN Reason Start Time Stop Time Status Last Admin Dose Admin Acetaminophen (Tylenol) 650 mg Q6H PRN ORAL Mild Pain/Temp > 100.5 01/17/18 21:30 02/14/18 21:29 Acetaminophen/ Hydrocodone Bitart ([place] 5/325) 1 tab Q4H PRN ORAL Moderate Pain (Pain Scale 4-6) 01/17/18 21:30 01/22/18 21:29 01/18/18 12:40 Baclofen (Lioresal) 10 mg THREE TIMES A DAY ORAL 01/18/18 09:00 02/15/18 23:57 01/20/18 17:54 Diphenhydramine HCl (Benadryl) 25 mg EVERY 6 HOURS PRN IVP Itching 01/17/18 21:57 02/16/18 21:56 01/20/18 09:56 Dipyridamole/ Aspirin (Aggrenox) 1 cap TWICE A DAY ORAL 01/18/18 09:00 02/15/18 08:59 01/20/18 17:55 Docusate Sodium (Colace) 100 mg BIDPRN PRN ORAL Constipation 01/18/18 22:00 02/17/18 21:59 01/18/18 22:07 Folic Acid (Folate) 1 mg DAILY ORAL 01/18/18 09:00 02/15/18 08:59 01/20/18 09:56 Gabapentin (Neurontin) 300 mg THREE TIMES A DAY ORAL 01/18/18 09:00 02/15/18 23:58 01/20/18 17:54 Levetiracetam (Keppra) 1,000 mg DAILY ORAL 01/18/18 09:00 02/15/18 08:59 01/20/18 09:56 Levothyroxine Sodium (Synthroid) 75 mcg ACBREAKFAST ORAL 01/18/18 06:30 02/15/18 06:29 01/20/18 05:36 Metoprolol Tartrate (Lopressor) 25 mg EVERY 12 HOURS ORAL 01/17/18 21:00 02/14/18 21:59 01/20/18 09:55 Morphine Sulfate (Morphine Sulfate) 4 mg Q4H PRN IVP Severe Pain (Pain Scale 7-10) 01/17/18 21:30 01/22/18 21:29 01/20/18 15:58 Ondansetron HCl (Zofran) 4 mg Q6H PRN ORAL Nausea & Vomiting 01/17/18 22:00 02/14/18 21:59 01/17/18 23:03 Pantoprazole (Protonix) 40 mg DAILY ORAL 01/18/18 09:00 02/15/18 08:59 01/20/18 09:56 Pravastatin Sodium (Pravachol) 40 mg BEDTIME ORAL 01/17/18 21:00 02/14/18 23:48 01/19/18 21:25 Pregabalin (Lyrica) 50 mg THREE TIMES A DAY ORAL 01/18/18 09:00 02/14/18 23:48 01/20/18 17:54 Tamsulosin HCl (Flomax) 0.4 mg BEDTIME ORAL 01/17/18 21:00 02/14/18 23:49 01/19/18 21:25 Trazodone HCl (Desyrel) 50 mg HSPRN PRN ORAL Insomnia 01/17/18 22:00 02/16/18 21:59 01/17/18 23:03 Assessment/Plan Status: stable Assessment/Plan anxiety d/o -no meds -the pt is able to walk with cane -d/w warp knit operator on case -the pt is not at imminent dts/dto Nisha Hopson M.D. January 20, 2018 19:33
[2018-01-20 20:00] VITALS: BP 108/65
--- NOTE | 2018-01-20 20:31 | General Progress Note ---
Assessment/Plan Assessment/Plan (1) Left-sided weakness (2) H/O CVA (3) Peripheral neuropathy (4) Lumbago (5) Lumbar radiculopathy We will continue Morphine and [place] as needed We will increased Lyrica to 75mg TID and discontinued Neurontin. The patient was discussed with Dr. Son and concurred. Subjective Date patient seen: January 20, 2018 Time patient seen: 07:45 - pm Allergies: Coded Allergies: No Known Allergies (Unverified , 04/29/16) Subjective REVIEW OF SYSTEMS: Denies fever, chills, sweating, drowsiness, blurred vision, sore throat. No shortness of breath or chest pain. No bowel or bladder incontinence. He is complaining of generalized body pain. SUBJECTIVE: Pt is a known patient from prior admission and has been admitted under the care of Dr. Reyes due to Hypotension. At this time is on norco 5/325mg PO 1 tab Q6H PRN moderate pain, Morphine 4mg IV Q4H PRN severe pain, Neurontin 300mg TID and Lyrica 50mg TID. D/w Patient about increasing the Lyrica and discontinuing the Neurontin. He understands. Objective Last 24 Hour Vital Signs Date Time Temp Pulse Resp B/P (MAP) Pulse Ox O2 Delivery O2 Flow Rate FiO2 01/20/18 16:28 98.0 01/20/18 16:00 98.0 80 20 133/82 98 Room Air 98.0 01/20/18 12:00 98.5 69 18 106/68 98 Room Air 98.5 01/20/18 11:23 98.8 01/20/18 09:56 98.8 01/20/18 09:55 77 138/84 01/20/18 08:00 98.8 77 20 138/84 99 Room Air 98.8 01/20/18 04:00 98.1 63 20 131/69 98 98.1 01/20/18 00:00 97.8 80 19 116/71 98 97.8 01/19/18 21:25 81 132/70 Intake and Output 01/19/18 01/20/18 19:00 07:00 Intake Total 240 ml Balance 240 ml Intake Oral 240 ml # Voids 5 4 # Bowel Movements 1 2 Laboratory Tests 01/20/18 06:30: Sodium Level 139, Potassium Level 4.3, Chloride Level 106, Carbon Dioxide Level 24, Anion Gap 9, Blood Urea Nitrogen 17, Creatinine 1.1, Estimat Glomerular Filtration Rate > 60, Glucose Level 114H, Calcium Level 8.6 01/20/18 08:18: White Blood Count 6.2, Red Blood Count 3.55L, Hemoglobin 10.8L, Hematocrit 32.8L , Mean Corpuscular Volume 92, Mean Corpuscular Hemoglobin 30.5, Mean Corpuscular Hemoglobin Concent 33.1, Red Cell Distribution Width 12.9, Platelet Count 188, Mean Platelet Volume 7.9, Neutrophils (%) (Auto) 68.4, Lymphocytes (% ) (Auto) 16.3L, Monocytes (%) (Auto) 8.8, Eosinophils (%) (Auto) 5.6H, Basophils (%) (Auto) 1.0 Height (Feet): 5 Height (Inches): 6.00 Weight (Pounds): 143 Objective PHYSICAL EXAMINATION: GENERAL: Alert, awake, and oriented x3. HEENT: PERRLA. NECK: Range of motion is full in all directions. No tenderness. No adenopathy. LUNGS: Clear. HEART: Regular. ABDOMEN: Benign with exploratory laparotomy surgical scar noted. BACK: Range of motion is decreased in flexion and extension with tenderness to paraspinal muscles, trapezius, and rhomboid. EXTREMITIES: No cyanosis. No clubbing. No edema. NEURO: Lower extremity is 4/5 in all muscles bilaterally. Abhi García January 20, 2018 20:31
[2018-01-20] MEDS: Tamsulosin 0.4mg cap ORAL SCH (20:43)
[2018-01-20] MEDS: Lyrica 75mg cap ORAL SCH (20:44)
[2018-01-20] MEDS: Norco 5mg/325mg tab ORAL PRN (22:36)
[2018-01-21] VITALS: BP 108/60
[2018-01-21] MEDS: Morphine Sulfate 4mg/ml Inj IVP PRN ×3 (00:56→15:50)
[2018-01-21 04:00] VITALS: BP 120/72
[2018-01-21] MEDS: DiphenhydrAMINE 50mg/ml Inj IVP PRN (06:34)
[2018-01-21 08:00] VITALS: BP_SYST 173; BP_DIAS 108; BP_DIAS 8
[2018-01-21 08:19] LABS: ANION GAP 8 mmol/L (5-15); BLOOD UREA NITROGEN 18 mg/dL (7-18); CALCIUM 9.3 MG/DL (8.5-10.1); CARBON DIOXIDE 29 MMOL/L (21-32); CHLORIDE 102 MMOL/L (98-107); CREATININE 1.1 MG/DL (0.55-1.30); POTASSIUM 4.2 MMOL/L (3.5-5.1); SODIUM 139 MMOL/L (136-145)
[2018-01-21] MEDS: Metoprolol 25mg tab ORAL SCH (08:19)
[2018-01-21] MEDS: Aggrenox Cap ORAL SCH ×2 (08:20→17:45)
[2018-01-21] MEDS: Norco 5mg/325mg tab ORAL PRN (08:20)
[2018-01-21] MEDS: Lyrica 75mg cap ORAL SCH ×3 (08:20→17:46)
[2018-01-21 08:40] LABS: EOSINOPHILS % (AUTO) 5.9 % (0.0-3.0); HEMATOCRIT 37.5 % (42.0-52.0); HEMOGLOBIN 12.2 G/DL (14.2-18.0); LYMPHOCYTES % (AUTO) 14.7 % (20.0-45.0); MEAN CORPUSCULAR VOLUME 93 FL (80-99); MONOCYTES % (AUTO) 7.7 % (1.0-10.0); NEUTROPHILS % (AUTO) 70.8 % (45.0-75.0); PLATELET COUNT 236 K/UL (150-450); RED BLOOD COUNT 4.05 M/UL (4.70-6.10); RED CELL DISTRIBUTION WIDTH 12.9 % (11.6-14.8); WHITE BLOOD COUNT 6.8 K/UL (4.8-10.8)
--- NOTE | 2018-01-21 08:55 | General Progress Note ---
Assessment/Plan Assessment/Plan (1) Left-sided weakness (2) H/O CVA (3) Peripheral neuropathy (4) Lumbago (5) Lumbar radiculopathy We will continue Lyrica, Morphine and Cortez as needed The patient was discussed with Dr. Son and concurred. Subjective Date patient seen: January 21, 2018 Time patient seen: 07:15 - am Allergies: Coded Allergies: No Known Allergies (Unverified , 04/29/16) Subjective REVIEW OF SYSTEMS: Denies fever, chills, sweating, drowsiness, blurred vision, sore throat. No shortness of breath or chest pain. No bowel or bladder incontinence. He is complaining of generalized body pain. SUBJECTIVE: Pt has been in bed reports that the Morphine and Cortez has allowed him to to tolerate the pain with the increase in Lyrica. He has gotten 3 morphine doses and 2 Cortez doses. Objective Last 24 Hour Vital Signs Date Time Temp Pulse Resp B/P (MAP) Pulse Ox O2 Delivery O2 Flow Rate FiO2 01/21/18 08:20 97.0 01/21/18 08:20 97.0 01/21/18 08:19 86 173/108 01/21/18 08:00 98.4 86 22 173/8 100 Room Air 98.4 01/21/18 04:00 97.0 65 19 120/72 98 Room Air 97.0 01/21/18 00:00 98.5 75 18 108/60 95 Room Air 98.5 01/20/18 20:48 83 114/64 01/20/18 20:00 98.4 85 19 108/65 94 Room Air 98.4 01/20/18 16:28 98.0 01/20/18 16:00 98.0 80 20 133/82 98 Room Air 98.0 01/20/18 12:00 98.5 69 18 106/68 98 Room Air 98.5 01/20/18 11:23 98.8 01/20/18 09:56 98.8 01/20/18 09:55 77 138/84 Intake and Output 01/20/18 01/21/18 19:00 07:00 Intake Total 900 ml Output Total 450 ml Balance 450 ml Intake Oral 900 ml Output Urine Total 450 ml # Voids 4 4 # Bowel Movements 2 2 Laboratory Tests 01/21/18 07:44: White Blood Count 6.8, Red Blood Count 4.05L, Hemoglobin 12.2L, Hematocrit 37.5L , Mean Corpuscular Volume 93, Mean Corpuscular Hemoglobin 30.2, Mean Corpuscular Hemoglobin Concent 32.6, Red Cell Distribution Width 12.9, Platelet Count 236, Mean Platelet Volume 7.4, Neutrophils (%) (Auto) 70.8, Lymphocytes (% ) (Auto) 14.7L, Monocytes (%) (Auto) 7.7, Eosinophils (%) (Auto) 5.9H, Basophils (%) (Auto) 1.0, Sodium Level 139, Potassium Level 4.2, Chloride Level 102, Carbon Dioxide Level 29, Anion Gap 8, Blood Urea Nitrogen 18, Creatinine 1.1, Estimat Glomerular Filtration Rate > 60, Glucose Level 102, Calcium Level 9.3 Height (Feet): 5 Height (Inches): 6.00 Weight (Pounds): 143 Objective PHYSICAL EXAMINATION: GENERAL: Alert, awake, and oriented x3. HEENT: PERRLA. NECK: Range of motion is full in all directions. No tenderness. No adenopathy. LUNGS: Clear. HEART: Regular. ABDOMEN: Benign with exploratory laparotomy surgical scar noted. BACK: Range of motion is decreased in flexion and extension with tenderness to paraspinal muscles, trapezius, and rhomboid. EXTREMITIES: No cyanosis. No clubbing. No edema. NEURO: Lower extremity is 4/5 in all muscles bilaterally. Abhi García January 21, 2018 08:55
[2018-01-21] MEDS ORDERED: Lyrica 75mg cap ORAL SCH (09:00)
[2018-01-21 09:04] VITALS: BP 139/82
[2018-01-21 12:00] VITALS: BP 95/54
[2018-01-21] MEDS ORDERED: Oxymetazoline 0.05% Na Spray 30ml NASAL PRN (13:45)
[2018-01-21] MEDS ORDERED: Ocean Nasal Spray 45ml NASAL PRN (13:45)
[2018-01-21 16:00] VITALS: BP 100/63
--- NOTE | 2018-01-21 17:42 | General Progress Note ---
Subjective Date patient seen: January 21, 2018 Neurologic/Psychiatric: Reports: anxiety, depressed, emotional problems Allergies: Coded Allergies: No Known Allergies (Unverified , 04/29/16) Objective Last 24 Hour Vital Signs Date Time Temp Pulse Resp B/P (MAP) Pulse Ox O2 Delivery O2 Flow Rate FiO2 01/21/18 16:20 97.6 01/21/18 16:00 97.6 82 18 100/63 97 Room Air 97.6 01/21/18 15:50 97.0 01/21/18 15:28 97.0 01/21/18 14:29 97.0 01/21/18 12:00 98.8 80 18 95/54 94 Room Air 98.8 01/21/18 09:20 97.0 01/21/18 09:04 139/82 01/21/18 08:20 97.0 01/21/18 08:20 97.0 01/21/18 08:19 86 173/108 01/21/18 08:00 98.4 86 22 173/108 100 Room Air 98.4 01/21/18 04:00 97.0 65 19 120/72 98 Room Air 97.0 01/21/18 00:00 98.5 75 18 108/60 95 Room Air 98.5 01/20/18 20:48 83 114/64 01/20/18 20:00 98.4 85 19 108/65 94 Room Air 98.4 Intake and Output 01/20/18 01/21/18 19:00 07:00 Intake Total 900 ml Output Total 450 ml Balance 450 ml Intake Oral 900 ml Output Urine Total 450 ml # Voids 4 4 # Bowel Movements 2 2 Laboratory Tests 01/21/18 07:44: White Blood Count 6.8, Red Blood Count 4.05L, Hemoglobin 12.2L, Hematocrit 37.5L , Mean Corpuscular Volume 93, Mean Corpuscular Hemoglobin 30.2, Mean Corpuscular Hemoglobin Concent 32.6, Red Cell Distribution Width 12.9, Platelet Count 236, Mean Platelet Volume 7.4, Neutrophils (%) (Auto) 70.8, Lymphocytes (% ) (Auto) 14.7L, Monocytes (%) (Auto) 7.7, Eosinophils (%) (Auto) 5.9H, Basophils (%) (Auto) 1.0, Sodium Level 139, Potassium Level 4.2, Chloride Level 102, Carbon Dioxide Level 29, Anion Gap 8, Blood Urea Nitrogen 18, Creatinine 1.1, Estimat Glomerular Filtration Rate > 60, Glucose Level 102, Calcium Level 9.3 Height (Feet): 5 Height (Inches): 6.00 Weight (Pounds): 143 General Appearance: no apparent distress, alert Neurologic: oriented x 3, responsive, depressed affect Nisha Hopson M.D. January 21, 2018 17:42
--- NOTE | 2018-01-22 00:38 | Discharge Summary ---
Discharge Summary Hospital Course Date of Admission January 15, 2018 at 14:58 Date of Discharge January 21, 2018 at 18:46 Admitting Diagnosis HYPOTENSION, SYNCOPAL EPISODE HPI Kalyan Briceno is a 52 year old male who was admitted on January 15, 2018 at 14: 58 for Hypotension,Syncopal Episode 52 y/o male with a PMH of seizure disorder, Hodgkin's lymphoma in remission, hypothyroidism, HTN, GERD, and chemo-related neuropathy presented for bilateral leg pain and hypotension. Patient was noted to have a SBP of 60s but denies chest pain, sob, palpitations. Patient also reported chest pain but EKG showed sinus tachycardia with no ST elevations. Initial troponin was negative and CT chest was done, which was largely unremarkable. Patient was further admitted for hypotension. Denies f/c, n/v, abdominal pain. Consultations Pain management Discharge Medications Continued Medications: Acetaminophen With Codeine 300MG/30MG (T#3)* (Tylenol With Codeine #3 Tablet*) Y Tab 1 TAB ORAL Q4H PRN for For Pain, #30 TAB 0 Refills (This prescription has been renewed) Aspirin/Dipyridamole* (Aggrenox 25 Mg-200 Mg Capsule*) 1 Each Cpmp.12hr 1 CAP ORAL TWICE A DAY, CAP Aspirin/Dipyridamole* (Aggrenox 25 Mg-200 Mg Capsule*) 1 Each Cpmp.12hr 1 CAP ORAL TWICE A DAY, CAP (This prescription has been renewed) Baclofen* (Baclofen*) 10 Mg Tablet 10 MG ORAL THREE TIMES A DAY, TAB (This prescription has been renewed) Escitalopram Oxalate* (Lexapro*) 20 Mg Tablet 20 MG ORAL DAILY, TAB (This prescription has been renewed) Folic Acid* (Folic Acid*) 1 Mg Tablet 1 MG ORAL DAILY, TAB (This prescription has been renewed) Gabapentin* (Gabapentin*) 300 Mg Capsule 300 MG ORAL THREE TIMES A DAY, CAP 0 Refills (This prescription has been renewed ) Levetiracetam* (Levetiracetam*) 500 Mg Tablet 1000 MG ORAL DAILY, #60 TAB 0 Refills Levothyroxine Sodium* (Levothyroxine Sodium*) 75 Mcg Tablet 75 MCG ORAL DAILY, TAB (This prescription has been renewed) Take in the morning on an empty stomach, at least 30 minutes before food. Metoprolol Tartrate* (Metoprolol Tartrate*) 25 Mg Tablet 25 MG ORAL EVERY 12 HOURS, TAB (This prescription has been renewed) Omeprazole (Omeprazole) 20 Mg Capsule.dr 20 MG ORAL DAILY, CAP Ondansetron* (Zofran*) 4 Mg Tablet 4 MG ORAL Q6H PRN for Nausea & Vomiting, TAB (This prescription has been renewed ) Pantoprazole* (Pantoprazole*) 40 Mg Tablet.dr 40 MG ORAL DAILY, TAB Pravastatin Sodium (Pravachol) 40 Mg Tablet 40 MG ORAL BEDTIME, TAB (This prescription has been renewed) Pregabalin (Lyrica) 50 Mg Capsule 50 MG ORAL THREE TIMES A DAY, CAP (This prescription has been renewed) Tamsulosin Hcl (Tamsulosin Hcl*) 0.4 Mg Cap.er.24h 0.4 MG ORAL BEDTIME, CAP (This prescription has been renewed) Discontinued Medications: Amoxicillin* (Amoxil*) 500 Mg Capsule 500 MG ORAL EVERY 8 HOURS, CAP Levetiracetam (Levetiracetam) 1,000 Mg Tablet 1000 MG ORAL TWICE A DAY, #60 TAB 0 Refills Levothyroxine Sodium* (Levothyroxine Sodium*) 75 Mcg Tablet Unknown Dose ORAL DAILY, TAB Take in the morning on an empty stomach, at least 30 minutes before food. Metoprolol Tartrate* (Metoprolol Tartrate*) 25 Mg Tablet Unknown Dose ORAL EVERY 12 HOURS, TAB Pantoprazole* (Pantoprazole*) 40 Mg Tablet.dr 40 MG ORAL DAILY, TAB Discharge Discharge Disposition Patient was discharged to [facility] Discharge Diagnoses: (1) H/O Hodgkin's lymphoma (2) HTN (hypertension) (3) Left-sided weakness (4) Hypotension (5) GERD (gastroesophageal reflux disease) (6) Syncopal episodes (7) Seizure (8) Hypothyroidism (9) Renal failure Tequila Patiño NP Jan 22, 2018 00:38
== END 2018-01-21 18:46 | DRG 207 ==
LOC: EDBD 14:18 → EMR 14:35 → EDBEDREQSVC 14:43 → 2W 14:58 → EDBEDREQ 15:48 → 4E 01-17 21:00
DX: I95.9 Hypotension, unspecified (principal); N19 Unspecified kidney failure; I69.354 Hemiplegia and hemiparesis following cerebral infarction affecting left non-dominant side; J98.4 Other disorders of lung; G62.0 Drug-induced polyneuropathy; T45.1X5S Adverse effect of antineoplastic and immunosuppressive drugs, sequela; I10 Essential (primary) hypertension; R55 Syncope and collapse; Z85.72 Personal history of non-Hodgkin lymphomas; Z85.71 Personal history of Hodgkin lymphoma; R53.1 Weakness; K21.9 Gastro-esophageal reflux disease without esophagitis; E03.9 Hypothyroidism, unspecified; F41.9 Anxiety disorder, unspecified; M54.16 Radiculopathy, lumbar region; G40.909 Epilepsy, unspecified, not intractable, without status epilepticus
CPT/HCPCS: 36415; 36600; 71045; 71275; 80048; 80053; 80299; 81003; 82550; 82553; 82803; 83605; 83690; 83735; 83880; 84100; 84443; 84484; 85025; 85610; 85730; 86850; 86900; 86901; 87040; 93005; 93306; 93882; 99285; J8499